=== PATIENT | female | born 1950 | race Caucasian/White ===

== ENCOUNTER 2018-05-19 07:05 | Day surgery (SDC) | payer MEDICARE, BC ==
[~2018-05-19 07:05] MED LIST: Acetaminophen 325 MG Tab PO SCH; Lactated Ringers 1,000 ML IV SCH; Lidocaine 1%/Sod Bicarbonate in NS 8.4% 1 ML Syringe IDERM PRN; Pregabalin 25 MG Cap PO SCH; Sodium Chloride 0.9% 10 ML Syringe FLUSH PRN; oxyCODONE ER 10 MG TAB.ER PO SCH
[2018-05-19] MEDS ORDERED: fentaNYL 100 MCG/2 ML SDV ONE (07:41)
[2018-05-19] MEDS ORDERED: Midazolam 1 MG/ML 2 ML SDV ONE (07:41)
[2018-05-19] MEDS ORDERED: Ketamine 500 mg/10 ML MDV ONE (07:41)
[2018-05-19] MEDS ORDERED: Propofol 200 MG/20 ML SDV ONE (07:41)
[2018-05-19] MEDS ORDERED: Ondansetron 4 MG/2 ML SDV ONE (07:42)
[2018-05-19] MEDS ORDERED: Lidocaine 1% 4 ML ONE (07:42)
[2018-05-19] MEDS ORDERED: ceFAZolin 1 GM Vial ONE ×2 (07:42→09:00)
[2018-05-19] MEDS ORDERED: Bupivacaine 0.75% 30 ML SDV ONE (07:42)
[2018-05-19] MEDS ORDERED: Dexamethasone 4 MG/ML 5 ML MDV ONE (07:42)
[2018-05-19] MEDS ORDERED: Ketorolac 30 MG/ML SDV ONE (07:42)
[2018-05-19] MEDS ORDERED: Triamcinolone Acetonide 40 MG/ML 1 ML MDV ONE (08:11)
--- NOTE | 2018-05-19 08:35 | PCM.PREANE ---
Preanesthetic Assessment - Procedure Proposed Procedure: Right Total Knee Arthroplasty - Anesthesia/Transfusion/Family Hx Anesthesia History: Prior Anesthesia Reaction Type of Anesthesia Reaction: Excessive Nausea/Vomiting Family History of Anesthesia Reaction: No - Review of Systems General: No Symptoms Pulmonary: No Symptoms, Other (History of questionable asthma. Patient states she uses her inhalers when she gets a cold. Denies SOB. ) Cardiovascular: No Symptoms, Other (Denies any episodes of chest pain. Able to walk up two flights of stairs. ) Gastrointestinal: No Symptoms Neurological: Headache Other: Reports: Depression (Bipolar Disorder), Anxiety - Physical Assessment NPO Status Date: 05/18/18 NPO Status Time: 21:00 (Water) Pulse: 87 O2 Sat by Pulse Oximetry: 93 Respiratory Rate: 18 Blood Pressure: 137/63 Temperature: 36.9 C Weight: 54.431 kg ASA Class: 2 Mental Status: Alert & Oriented x3 Airway Class: Mallampati = 2 Dentition: Reports: Normal Dentition Thyro-Mental Finger Breadths: 2 Mouth Opening Finger Breadths: 3 ROM/Head Extension: Full Lungs: Clear to Auscultation, Normal Respiratory Effort Cardiovascular: Regular Rate, Regular Rhythm, Murmurs - Lab Values: Laboratory Last Values MRSA (PCR) Negative 05/05/18 15:35 - Allergies Allergies/Adverse Reactions: Allergies Allergy/AdvReac Type Severity Reaction Status Date / Time codeine Allergy Rash Verified 05/16/18 12:20 guaifenesin [From Entex LA] Allergy Rash Verified 05/16/18 12:20 latex Allergy Cannot Verified 05/16/18 12:20 Remember phenylephrine HCl Allergy Rash Verified 05/16/18 12:20 [From Entex LA] phenylpropanolamine HCl Allergy Rash Verified 05/16/18 12:20 [From Entex LA] potassium Allergy Cannot Verified 05/16/18 12:20 Remember Sulfa (Sulfonamide Allergy Cannot Verified 05/16/18 12:20 Antibiotics) Remember montelukast sodium AdvReac Drowsiness Verified 05/16/18 12:20 [From Singulair] tetracycline [Tetracycline] AdvReac Nausea and Verified 05/16/18 12:20 Vomiting metals Allergy Cannot Uncoded 05/16/18 12:20 Remember - Acknowledgements Anesthesia Type Planned: Spinal Pt an Appropriate Candidate for the Planned Anesthesia: Yes Alternatives and Risks of Anesthesia Discussed w Pt/Guardian: Yes Pt/Guardian Understands and Agrees with Anesthesia Plan: Yes PreAnesthesia Questionnaire HEENT History: Reports: Allergic Rhinitis, Impaired Vision, Sinusitis, Other ( See Below) Other HEENT History: eustachian tybe dysfunction, bilateral serous otitis media , dental abcess Cardiovascular History: Reports: Heart Murmur, Hypertension, Other (See Below) Other Cardiovascular History: mitral valve prolapse, patent ductous arteriosis repair at 5 years old Respiratory History: Reports: Asthma, Bronchitis, Recurrent Gastrointestinal History: Reports: GERD NUT STEAMER History: Reports: Other (See Below) Other OB/BYN History: candidal vagintits, menopausal, breast microcalcifications , hot flashes, tubal Musculoskeletal History: Reports: Other (See Below) Other Musculoskeletal History: hammertoe, sicatica, left shoulder pain Neurological History: Reports: Migraines, Other (See Below) Other Neuro History: trigeminal neuralgia Psychiatric History: Reports: Bipolar Endocrine/Metabolic History: Reports: Other (See Below) Other Endocrine/Metabolic History: vitamin b12 deficiency Hematologic History: Reports: Anemia Immunologic History: Reports: None Oncologic (Cancer) History: Reports: Basal Cell Carcinoma Dermatologic History: Reports: Other (See Below) Other Dermatologic History: bCC - Past Surgical History Head Surgeries/Procedures: Reports: None HEENT Surgical History: Reports: Myringotomy w Tube(s), Naso-Sinus Surgery, Tonsillectomy Cardiovascular Surgical History: Reports: None Respiratory Surgical History: Reports: None Female Surgical History: Reports: Hysterectomy, Oophorectomy, Tubal Ligation Male Surgical History: Reports: None Neurological Surgical History: Reports: None Musculoskeletal Surgical History: Reports: Shoulder Surgery Oncologic Surgical History: Reports: None - SUBSTANCE USE Smoking Status *Q: Never Smoker Recreational Drug Use History: No - HOME MEDS Home Medications: Home Meds Estradiol 0.5 mg PO DAILY 08/02/14 [History] carBAMazepine [TEGretol] 500 mg PO BEDTIME 08/02/14 [History] risperiDONE [Risperdal] 3 mg PO BEDTIME 08/02/14 [History] Nitroglycerin 0.4 mg SL ONETIME PRN #1 tab.subl 08/03/14 [Rx] Albuterol Sulfate 1 dose INH Q6H PRN 11/03/14 [History] Albuterol [Proair HFA] 2 puff INH Q4H PRN 11/03/14 [History] Cetirizine [ZyrTEC] 10 mg PO BEDTIME 11/03/14 [History] Fluticasone Propionate [Flonase] 2 spray KENNEY BID 11/03/14 [History] Rizatriptan Benzoate [Rizatriptan] 10 mg PO Q2H PRN 11/03/14 [History] guaiFENesin [Mucinex] 600 mg PO BID PRN 11/03/14 [History] Aspirin [Adult Low Dose Aspirin EC] 81 mg PO DAILY 05/16/18 [History] Cholecalciferol (Vitamin D3) [Vitamin D3] 5,000 unit PO DAILY 05/16/18 [History] Olmesartan [Benicar] 20 mg PO DAILY 05/16/18 [History] - CURRENT (IN HOUSE) MEDS Current Meds: Current Medications Acetaminophen (Tylenol) 975 mg PO ONETIME REPLACED BY [facility] Stop: 05/19/18 18:00 Aspirin (Ecotrin) 325 mg PO BID IDANIA Bisacodyl (Dulcolax) 5 mg PO DAILY PRN PRN Reason: Constipation Morphine Sulfate 8 mg/Epinephrine HCl 0.3 mg/Cefuroxime Sodium 750 mg/Ketorolac Tromethamine 30 mg/Sodium Chloride 27.9 ml 0 mg .XX ONETIME ONE Stop: 05/19/18 10:01 Cyclobenzaprine HCl (Flexeril) 10 mg PO TID PRN PRN Reason: Spasms Docusate Sodium (Colace) 100 mg PO BID IDANIA Famotidine (Pepcid) 20 mg PO Q12H REPLACED BY [facility] Lactated Ringer's (Ringers, Lactated) 1,000 mls @ 125 mls/hr IV ASDIRECTED REPLACED BY [facility] Stop: 05/19/18 23:00 Cefazolin Sodium/Dextrose 2 gm (/ Premix) 50 mls @ 100 mls/hr IV Q8H REPLACED BY [facility] Stop: 05/19/18 23:14 Ketorolac Tromethamine (Toradol) 15 mg IVPUSH Q6H PRN PRN Reason: Pain Lidocaine/Sodium Bicarbonate (Buffered Lidocaine 1% In Ns 8.4%) 0.25 ml IDERM ONETIME PRN PRN Reason: Prior to IV Start Stop: 05/19/18 18:00 Magnesium Hydroxide (Milk Of Magnesia) 30 ml PO BID PRN PRN Reason: Constipation Morphine Sulfate (Morphine) 2 mg IVPUSH Q2H PRN PRN Reason: Breakthrough Pain Naloxone HCl (Narcan) 0.1 mg IVPUSH Q5M PRN PRN Reason: Oversedation Ondansetron HCl (Zofran) 4 mg IVPUSH Q6H PRN PRN Reason: Nausea/Vomiting Oxycodone HCl (Oxycontin) 10 mg PO ONETIME IDANIA Stop: 05/19/18 18:00 Oxycodone/Acetaminophen (Percocet 325-5 Mg) 1 - 2 tab PO Q4H PRN PRN Reason: Pain Pregabalin (Lyrica) 50 mg PO ONETIME IDANIA Stop: 05/19/18 18:00 Senna (Senna) 8.6 mg PO BID PRN PRN Reason: Constipation Sodium Chloride (Saline Flush) 10 ml FLUSH ASDIRECTED PRN PRN Reason: Keep Vein Open Stop: 05/19/18 18:00 Discontinued Medications Bupivacaine HCl (Sensorcaine-Mpf 0.75%) Confirm Administered Dose 30 ml .ROUTE .STK-MED ONE Stop: 05/19/18 07:43 Bupivacaine HCl (Marcaine 0.25%) Confirm Administered Dose 30 ml .ROUTE .STK- MED ONE Stop: 05/19/18 08:12 Bupivacaine HCl (Sensorcaine-Mpf 0.25%) Confirm Administered Dose 10 ml .ROUTE .STK-MED ONE Stop: 05/19/18 08:14 Cefazolin Sodium (Ancef) Confirm Administered Dose 1 gm .ROUTE .STK-MED ONE Stop: 05/19/18 07:43 Cefazolin Sodium (Ancef) Confirm Administered Dose 2 gm .ROUTE .STK-MED ONE Stop: 05/19/18 08:12 Dexamethasone (Dexamethasone) Confirm Administered Dose 20 mg .ROUTE .STK-MED ONE Stop: 05/19/18 07:43 Fentanyl (Sublimaze) Confirm Administered Dose 100 mcg .ROUTE .STK-MED ONE Stop: 05/19/18 07:42 Lidocaine HCl (Xylocaine-Mpf 1%) Confirm Administered Dose 4 mls @ as directed .ROUTE .STK-MED ONE Stop: 05/19/18 07:43 Iodine (Iodine 2% Mild Tincture) Confirm Administered Dose 30 ml .ROUTE .STK- MED ONE Stop: 05/19/18 08:12 Ketamine HCl (Ketalar) Confirm Administered Dose 500 mg .ROUTE .STK-MED ONE Stop: 05/19/18 07:42 Ketorolac Tromethamine (Toradol) Confirm Administered Dose 30 mg .ROUTE .STK- MED ONE Stop: 05/19/18 07:43 Midazolam HCl (Versed 1 Mg/Ml) Confirm Administered Dose 2 mg .ROUTE .STK-MED ONE Stop: 05/19/18 07:42 Ondansetron HCl (Zofran) Confirm Administered Dose 4 mg .ROUTE .STK-MED ONE Stop: 05/19/18 07:43 Propofol (Diprivan 20 Ml) Confirm Administered Dose 600 mg .ROUTE .STK-MED ONE Stop: 05/19/18 07:42 Tranexamic Acid (Cyklokapron) Confirm Administered Dose 1,000 mg .ROUTE .STK- MED ONE Stop: 05/19/18 08:12 Triamcinolone Acetonide (Kenalog-40) Confirm Administered Dose 80 mg .ROUTE .STK -MED ONE Stop: 05/19/18 08:12 Vancomycin HCl (Vancomycin) Confirm Administered Dose 1 gm .ROUTE .STK-MED ONE Stop: 05/19/18 08:12
[2018-05-19] MEDS ORDERED: EPINEPHrine 1 MG/ML SDV ONE (08:41)
[2018-05-19] MEDS ORDERED: Ropivacaine 0.5% 5 MG/ML 30 ML SDV ONE (08:41)
[2018-05-19] MEDS: Bupivacaine 0.25% 30 ML SDV ONE ×2 (11:09→11:17)
[2018-05-19] MEDS: Bupivacaine 0.25% 10 ML SDV ONE ×2 (11:10→11:43)
[2018-05-19] MEDS: ceFAZolin 1 GM Vial ONE ×2 (11:11→11:13)
[2018-05-19] MEDS: Iodine/Sodium Iodide 2% Tincture 30 ML Bottle ONE ×2 (11:11→11:12)
[2018-05-19] MEDS: Morphine 8 MG, EPINEPHrine 0.3 MG, Cefuroxime 750 MG, Ketorolac 30 MG, Sodium Chloride ... ONE ×10 (11:15→11:16)
[2018-05-19] MEDS: Vancomycin 1 GM SDV ONE ×2 (11:16→11:18)
[2018-05-19] MEDS ORDERED: Albuterol 6.7 GM Inhaler INH PRN (11:52)
[2018-05-19] MEDS ORDERED: Albuterol 0.042% 1.25 MG/3 ML Neb Soln INH PRN (11:52)
[2018-05-19] MEDS ORDERED: Nitroglycerin 0.4 MG Tab.SL SL PRN (11:52)
[2018-05-19] MEDS ORDERED: Morphine 2 MG/ML Syringe IVPUSH PRN (12:00)
[2018-05-19] MEDS ORDERED: Cyclobenzaprine 10 MG Tab PO PRN (12:00)
[2018-05-19] MEDS ORDERED: Bisacodyl 5 MG Tab PO PRN (12:00)
[2018-05-19] MEDS ORDERED: Naloxone 0.4 MG/ML SDV IVPUSH PRN (12:00)
[2018-05-19] MEDS ORDERED: Magnesium Hydroxide 400 MG/5 ML Susp 30 ML Cup PO PRN (12:00)
[2018-05-19] MEDS ORDERED: Ketorolac 15 MG/ML SDV IVPUSH PRN (12:00)
[2018-05-19] MEDS ORDERED: Ondansetron 4 MG/2 ML SDV IVPUSH PRN (12:00)
[2018-05-19] MEDS ORDERED: Sennosides 8.6 MG Tab PO PRN (12:00)
--- NOTE | 2018-05-19 12:12 | PCM.POSTAN ---
POST ANESTHESIA ASSESSMENT - MENTAL STATUS Mental Status: Alert, Oriented - VITAL SIGNS Pulse Rate: 90 SaO2: 98 Resp Rate: 10 Blood Pressure: 105/53 Temperature: 36.6 C - RESPIRATORY Respiratory Status: Respiratory Rate WNL, Airway Patent, O2 Saturation Stable, Supplemental Oxygen - CARDIOVASCULAR CV Status: Pulse Rate WNL, Blood Pressure Stable - GASTROINTESTINAL GI Status: No Symptoms - PAIN Pain Score: 0 - POST OP HYDRATION Hydration Status: Adequate & Stable
[2018-05-19] MEDS ORDERED: Scopolamine 1.5 MG Transdermal Patch TOP ONE (12:45)
--- NOTE | 2018-05-19 12:49 | PCM.SN ---
- Free Text/Narrative Note: Right selective femoral nerve block at the adductor canal for post-procedure pain control Time Out: 1225 Start: 1228 End: 1233 Chart reviewed. Consent signed. Questions answered. Appropriate monitors applied. Time out performed. 2mg of versed and 100mcg of fentanyl given for sedation. Right mid-shaft femur evaluated with ultrasound. Scanning medially femur, I was able to identify the femoral artery in the adductor canal. The saphenous nerve was lateral to the artery. The skin was prepped lateral to the ultrasound probe with chlorahexadine. The 21ga 4 insulated block needle was inserted under direct ultrasound guidance into the adductor canal. 20mL of 0.5 % ropivacaine with 1:200,000 epinephrine was injected cirmcumferentially about the nerve with intermittent negative aspiration every 5mL. Patient tolerated the procedure well. No complications noted. See pictures on progress note and vital signs on nurses notes. Block completed postoperatively. Em Horner DIRECTOR OF RELIGIOUS ACTIVITIES
--- NOTE | 2018-05-19 14:19 | CR ---
Right knee: AP and lateral views of the right knee were obtained. Comparison: Previous MRI right knee exam of 03/31/18 is available. Knee prosthesis is seen. Components are aligned. Underlying bony structures are intact. Soft tissue air is noted from surgical procedure as well as air within the joint. No fracture or other abnormality is seen. Impression: 1. Satisfactory postoperative radiographic appearance of recently placed right knee prosthesis. Diagnostic code #2
[2018-05-19] MEDS: ceFAZolin 2 GM in Premix Bag 1 BAG IV SCH (18:06)
--- NOTE | 2018-05-19 19:20 | PCM.CONS ---
H&P History of Present Illness - General Date of Service: 05/19/18 Admit Problem/Dx: Admission Diagnosis/Problem Admission Diagnosis/Problem Osteoarthritis of knee Source of Information: Patient, Provider History Limitations: Reports: No Limitations - History of Present Illness Initial Comments - Free Text/Narative: Riana is a 68 yo female patient of Dr. Johnson who is post-operative day 0 of right TKA. Hospital medicine was consulted for post-operative medical care. At this time she is stable. Pain is controlled. She complains of nausea and a slight headache. She denies any chest pain, shortness of breath, palpitations, or vomiting. She carries a history of: Depression, abnormal glucose (IFG), asthma, bipolar, louis vaginitis, low bilirubin, allergies, murmur- bicuspid aortic valve, HTN, osteopenia, post-menopause, GERD, fatigue, migraines, mitral valve prolapse, sciatica. She has never smoked. She is a full code. Her primary care provider is Mickie Frye NP. - Related Data Allergies/Adverse Reactions: Allergies Allergy/AdvReac Type Severity Reaction Status Date / Time codeine Allergy Rash Verified 05/19/18 13:48 guaifenesin [From Entex LA] Allergy Rash Verified 05/19/18 13:48 latex Allergy Cannot Verified 05/19/18 13:48 Remember levofloxacin [From Levaquin] Allergy Cannot Verified 05/19/18 13:48 Remember lisinopril Allergy Cannot Verified 05/19/18 13:48 Remember losartan Allergy Cannot Verified 05/19/18 13:48 Remember phenylephrine HCl Allergy Rash Verified 05/19/18 13:48 [From Entex LA] phenylpropanolamine HCl Allergy Rash Verified 05/19/18 13:48 [From Entex LA] potassium Allergy Cannot Verified 05/19/18 13:48 Remember Sulfa (Sulfonamide Allergy Cannot Verified 05/19/18 13:48 Antibiotics) Remember montelukast sodium AdvReac Drowsiness Verified 05/19/18 13:48 [From Singulair] tetracycline [Tetracycline] AdvReac Nausea and Verified 05/19/18 13:48 Vomiting metals Allergy Cannot Uncoded 05/19/18 13:48 Remember Home Medications: Home Meds Estradiol 0.5 mg PO DAILY 08/02/14 [History] carBAMazepine [TEGretol] 500 mg PO BEDTIME 08/02/14 [History] risperiDONE [Risperdal] 3 mg PO BEDTIME 08/02/14 [History] Nitroglycerin 0.4 mg SL ONETIME PRN #1 tab.subl 08/03/14 [Rx] Albuterol Sulfate 1 dose INH Q6H PRN 11/03/14 [History] Albuterol [Proair HFA] 2 puff INH Q4H PRN 11/03/14 [History] Cetirizine [ZyrTEC] 10 mg PO BEDTIME 11/03/14 [History] Fluticasone Propionate [Flonase] 2 spray KENNEY BID 11/03/14 [History] Rizatriptan Benzoate [Rizatriptan] 10 mg PO Q2H PRN 11/03/14 [History] guaiFENesin [Mucinex] 600 mg PO BID PRN 11/03/14 [History] Cholecalciferol (Vitamin D3) [Vitamin D3] 5,000 unit PO DAILY 05/16/18 [History] Olmesartan [Benicar] 20 mg PO DAILY 05/16/18 [History] Acetaminophen/oxyCODONE [Percocet 325-5 MG] 1 - 2 tab PO Q6H PRN #60 tablet 01/05 [Rx] Aspirin [Ecotrin] 325 mg PO BID #84 tab.ec 05/19/18 [Rx] Bisacodyl [Dulcolax] 5 mg PO DAILY PRN tablet 05/19/18 [Rx] Docusate Sodium [Colace] 100 mg PO BID cap 05/19/18 [Rx] Famotidine [Pepcid] 20 mg PO Q12H tablet 05/19/18 [Rx] Magnesium Hydroxide [Milk of Magnesia] 30 ml PO BID PRN cup 05/19/18 [Rx] Sennosides [Senna] 8.6 mg PO BID PRN tablet 05/19/18 [Rx] Past Medical History HEENT History: Reports: Allergic Rhinitis, Impaired Vision, Sinusitis, Other ( See Below) Other HEENT History: eustachian tybe dysfunction, bilateral serous otitis media , dental abcess Cardiovascular History: Reports: Heart Murmur, Hypertension, Other (See Below) Other Cardiovascular History: mitral valve prolapse, patent ductous arteriosis repair at 5 years old Respiratory History: Reports: Asthma, Bronchitis, Recurrent Gastrointestinal History: Reports: GERD FIELD AIDE History: Reports: Other (See Below) Other OB/BYN History: candidal vagintits, menopausal, breast microcalcifications , hot flashes, tubal Musculoskeletal History: Reports: Other (See Below) Other Musculoskeletal History: hammertoe, sicatica, left shoulder pain Neurological History: Reports: Migraines, Other (See Below) Other Neuro History: trigeminal neuralgia Psychiatric History: Reports: Bipolar Endocrine/Metabolic History: Reports: Other (See Below) Other Endocrine/Metabolic History: vitamin b12 deficiency Hematologic History: Reports: Anemia Immunologic History: Reports: None Oncologic (Cancer) History: Reports: Basal Cell Carcinoma Dermatologic History: Reports: Other (See Below) Other Dermatologic History: bCC - Past Surgical History Head Surgeries/Procedures: Reports: None HEENT Surgical History: Reports: Myringotomy w Tube(s), Naso-Sinus Surgery, Tonsillectomy Cardiovascular Surgical History: Reports: None Respiratory Surgical History: Reports: None Female Surgical History: Reports: Hysterectomy, Oophorectomy, Tubal Ligation Male Surgical History: Reports: None Neurological Surgical History: Reports: None Musculoskeletal Surgical History: Reports: Shoulder Surgery Oncologic Surgical History: Reports: None Social & Family History - Tobacco Use Smoking Status *Q: Never Smoker - Caffeine Use Caffeine Use: Reports: Tea - Recreational Drug Use Recreational Drug Use: No Drug Use in Last 12 Months: No H&P Review of Systems - Review of Systems: Review Of Systems: See Below General: Reports: No Symptoms. Denies: Fever, Chills HEENT: Reports: Glasses, Headaches (mild) Pulmonary: Reports: No Symptoms. Denies: Shortness of Breath, Pleuritic Chest Pain, Cough Cardiovascular: Reports: No Symptoms. Denies: Chest Pain, Dyspnea on Exertion, Orthopnea, Lightheadedness Gastrointestinal: Reports: Nausea (mild). Denies: Abdominal Pain, Constipation , Diarrhea, Vomiting Genitourinary: Reports: No Symptoms. Denies: Dysuria, Frequency, Burning, Pain , Urgency Musculoskeletal: Reports: No Symptoms. Denies: Leg Pain, Joint Pain Skin: Reports: No Symptoms Psychiatric: Reports: No Symptoms Neurological: Reports: No Symptoms Hematologic/Lymphatic: Reports: No Symptoms Immunologic: Reports: No Symptoms Exam - Exam Exam: See Below - Vital Signs Vital Signs: Last Vital Signs Temp 97.5 F 05/19/18 13:09 Pulse 84 05/19/18 15:02 Resp 18 05/19/18 13:09 BP 113/55 L 05/19/18 15:02 Pulse Ox 95 05/19/18 15:02 Weight: 120 lb - Exam Quality Assessment: DVT Prophylaxis. No: Supplemental Oxygen, Urinary Catheter General: Alert, Oriented, Cooperative, Mild Distress HEENT: PERRLA, Hearing Intact, Mucosa Moist & [place], Nares Patent, Normal Nasal Septum, Posterior Pharynx Clear, Conjunctiva Clear, EOMI, EACs Clear, TMs Clear Neck: Supple, Trachea Midline, 2 Lungs: Clear to Auscultation, Normal Respiratory Effort Cardiovascular: Regular Rate, Regular Rhythm, Other (murmur) GI/Abdominal Exam: Normal Bowel Sounds, Soft, Non-Tender, No Organomegaly, No Distention, No Abnormal Bruit, No Mass, Pelvis Stable (Female) Exam: Deferred Rectal (Female) Exam: Deferred Back Exam: Normal Inspection, Full Range of Motion, NT Extremities: Normal Inspection, Non-Tender, No Pedal Edema, Normal Capillary Refill, Limited Range of Motion (s/p R TKA) Peripheral Pulses: 2+: Posterior Tibial (L), Posterior Tibial (R), Dorsalis Pedis (L), Dorsalis Pedis (R) Skin: Warm, Dry, Intact Neurological: Cranial Nerves Intact (grossly) Neuro Extensive - Mental Status: Alert, Oriented x3, Normal Mood/Affect, Normal Cognition Psychiatric: Alert, Normal Affect, Normal Mood Consult PN Assessment/Plan POD#: 0 Procedures: Procedures ASSAY CARBAMAZEPINE TOTAL (01/31/18) ASSAY GLUCOSE BLOOD QUANT (03/05/18) ASSAY OF NATRIURETIC PEPTIDE (08/03/14) ASSAY OF PREALBUMIN (04/24/18) ASSAY OF TROPONIN QUANT (08/03/14) ASSAY THYROID STIM HORMONE (02/08/16) C-REACTIVE PROTEIN (08/03/14) CHEST X-RAY 1 VIEW FRONTAL (08/03/14) CHEST X-RAY 2VW FRONTAL&LATL (10/12/14) COMP SCREEN MAMMOGRAM ADD-ON (04/27/16) COMPLETE CBC W/AUTO DIFF WBC (01/31/18) COMPREHEN METABOLIC PANEL (04/24/18) COMPUTER DX MAMMOGRAM ADD-ON (05/24/16) CREATINE MB FRACTION (08/03/14) DXA BONE DENSITY AXIAL (05/06/17) ELECTROCARDIOGRAM TRACING (08/03/14) EMERGENCY DEPT VISIT (08/03/14) EMERGENCY DEPT VISIT (08/02/14) FIBRIN DEGRADATION QUANT (08/03/14) FLUOROSCOPY <1 HR PHYS/QHP (12/09/14) GLYCOSYLATED HEMOGLOBIN TEST (03/05/18) HT MUSCLE IMAGE SPECT MULT (08/06/14) INCISION OF TOE TENDON (12/09/14) LIPID PANEL (01/31/18) METABOLIC PANEL TOTAL CA (10/12/14) MR-STAPH DNA AMP PROBE (10/26/14) MRI JNT OF LWR EXTRE W/O DYE (03/31/18) MRI JOINT UPR EXTREM W/O DYE (02/07/16) PERQ DEV BREAST 1ST STRTCTC (05/24/16) PROTHROMBIN TIME (04/24/18) REPAIR DEFORMITY OF TOE (12/09/14) REPAIR OF HAMMERTOE (12/09/14) ROUTINE VENIPUNCTURE (02/08/16) SCR MAMMO BI INCL CAD (05/13/18) THROMBOPLASTIN TIME PARTIAL (04/24/18) TTE W/DOPPLER COMPLETE (07/01/15) X-RAY EXAM CHEST 2 VIEWS (04/24/18) X-RAY EXAM OF SHOULDER (02/01/16) X-RAY EXAM SURGICAL SPECIMEN (05/24/16) (1) S/P total knee arthroplasty SNOMED Code(s): 0006651251158, 211997840, 2153487065950 Code(s): Z96.659 - PRESENCE OF UNSPECIFIED ARTIFICIAL KNEE JOINT Priority: High Current Visit: Yes Qualifiers: Laterality: right Qualified Code(s): Z96.651 - Presence of right artificial knee joint (2) Bipolar disorder SNOMED Code(s): 22333306 Code(s): F31.9 - BIPOLAR DISORDER, UNSPECIFIED Priority: Low Current Visit: No Qualifiers: Active/Remission status: remission status unspecified Qualified Code(s): F31.9 - Bipolar disorder, unspecified (3) Mitral valve prolapse SNOMED Code(s): 447993517 Code(s): I34.1 - NONRHEUMATIC MITRAL (VALVE) PROLAPSE Priority: Low Current Visit: Yes (4) Sciatica SNOMED Code(s): 68713702 Code(s): M54.30 - SCIATICA, UNSPECIFIED SIDE Priority: Low Current Visit : No Qualifiers: Laterality: unspecified laterality Qualified Code(s): M54.30 - Sciatica, unspecified side (5) Bicuspid aortic valve SNOMED Code(s): 03979083 Code(s): Q23.1 - CONGENITAL INSUFFICIENCY OF AORTIC VALVE Priority: Low Current Visit: Yes (6) Asthma SNOMED Code(s): 903821638 Code(s): J45.909 - UNSPECIFIED ASTHMA, UNCOMPLICATED Priority: Low Current Visit: No Qualifiers: Asthma severity: unspecified severity Asthma persistence: unspecified Asthma complication type: unspecified Qualified Code(s): J45.909 - Unspecified asthma, uncomplicated (7) HTN (hypertension) SNOMED Code(s): 07592198 Code(s): I10 - ESSENTIAL (PRIMARY) HYPERTENSION Priority: Low Current Visit: No Qualifiers: Hypertension type: unspecified Qualified Code(s): I10 - Essential (primary ) hypertension (8) Osteopenia SNOMED Code(s): 525388357 Code(s): M85.80 - OTH DISRD OF BONE DENSITY AND STRUCTURE, UNSPECIFIED SITE Priority: Low Current Visit: No Qualifiers: Osteopenia location: unspecified Qualified Code(s): M85.80 - Other specified disorders of bone density and structure, unspecified site (9) Postmenopausal Priority: Low Current Visit: Yes (10) GERD (gastroesophageal reflux disease) SNOMED Code(s): 143123645 Code(s): K21.9 - GASTRO-ESOPHAGEAL REFLUX DISEASE WITHOUT ESOPHAGITIS Priority: Medium Current Visit: Yes Qualifiers: Esophagitis presence: esophagitis presence not specified Qualified Code(s) : K21.9 - Gastro-esophageal reflux disease without esophagitis (11) Migraines SNOMED Code(s): 55739467 Code(s): G43.909 - MIGRAINE, UNSP, NOT INTRACTABLE, WITHOUT STATUS MIGRAINOSUS Priority: Low Current Visit: No Qualifiers: Migraine type: unspecified Status migrainosus presence: without status migrainosus Intractability: not intractable Qualified Code(s): G43.909 - Migraine, unspecified, not intractable, without status migrainosus Problem List Initiated/Reviewed/Updated: Yes Plan: I/P: Acute: S/P right total knee arthroplasty - post-operative day 0 -DVT prophylaxis and pain management per primary care team -PT/OT -IS/RT -Monitor oxygen saturation -Titrate oxygen as needed -Vital signs stable -Monitor labs -Pre-operative Hgb was 12.3 Osteoarthritis of knee -Pain management per primary care team Chronic: Depression Abnormal glucose (IFG) Asthma Bipolar Louis vaginitis Low bilirubin Allergies Murmur- bicuspid aortic valve HTN Osteopenia Post-menopause GERD Fatigue Migraines Mitral valve prolapse Sciatica Plan: CM for discharge planning GI prophylaxis: Pepcid DVT/PE prophylaxis: JESSICA holland, SCD, ASA Home medications as indicated Other orders as listed above Routine AM labs She is a full code. Her PCP is Mickie Frye NP. Thank you for allowing us to participate in the care of this patient!!
[2018-05-19] MEDS: Docusate Sodium 100 MG Cap PO SCH (20:10)
[2018-05-19] MEDS: Famotidine 20 MG Tab PO SCH (20:10)
[2018-05-19] MEDS: Acetaminophen/oxyCODONE 325-5 MG Tab PO PRN (20:23)
[2018-05-19] MEDS ORDERED: Estradiol 0.5 MG Tab PO SCH (21:00)
[2018-05-19] MEDS ORDERED: carBAMazepine 100 MG Tab.Chew PO SCH (21:00)
[2018-05-19] MEDS ORDERED: guaiFENesin 600 MG Tab.ER PO PRN (21:00)
[2018-05-19] MEDS ORDERED: risperiDONE 1 MG Tab PO SCH (21:00)
[2018-05-19] MEDS ORDERED: Loratadine 10 MG Tab PO SCH (21:00)
[2018-05-20] MEDS: Acetaminophen/oxyCODONE 325-5 MG Tab PO PRN ×2 (01:12→08:13)
[2018-05-20] MEDS: ceFAZolin 2 GM in Premix Bag 1 BAG IV SCH ×2 (01:13→09:00)
--- NOTE | 2018-05-20 06:41 | PCM.CONSN ---
- General Info Date of Service: 05/20/18 Admission Dx/Problem (Free Text): Admission Diagnosis/Problem Admission Diagnosis/Problem Osteoarthritis of knee Subjective Update: In to see Riana. She is sitting on the edge of bed and has no complaints or concerns. OT has visited with her and she is doing well with them. No concerns form nursing. Functional Status: Reports: Pain Controlled, Tolerating Diet, Ambulating, Urinating, Incentive Spirometry. Denies: New Symptoms - Review of Systems General: Reports: No Symptoms HEENT: Reports: No Symptoms Pulmonary: Reports: No Symptoms Cardiovascular: Reports: No Symptoms Gastrointestinal: Reports: No Symptoms Genitourinary: Reports: No Symptoms Musculoskeletal: Reports: Leg Pain Skin: Reports: No Symptoms Neurological: Reports: No Symptoms Psychiatric: Reports: No Symptoms - Patient Data Vitals - Most Recent: Last Vital Signs Temp 98.1 F 05/20/18 04:54 Pulse 92 05/20/18 04:54 Resp 16 05/20/18 04:54 BP 104/51 L 05/20/18 04:54 Pulse Ox 94 L 05/20/18 05:14 Weight - Most Recent: 120 lb I&O - Last 24 Hours: Intake & Output 05/19/18 05/19/18 05/20/18 14:59 22:59 06:59 Intake Total 100 860 450 Output Total 2050 Balance 100 860 -1600 Lab Results Last 24 Hours: Laboratory Results - last 24 hr 05/20/18 Range/Units 05:23 WBC 10.77 H (3.98-10.04) K/mm3 RBC 3.61 L (3.98-5.22) M/mm3 Hgb 11.8 (11.2-15.7) gm/L Hct 34.8 (34.1-44.9) % MCV 96.4 H (79.4-94.8) fl MCH 32.7 H (25.6-32.2) pg MCHC 33.9 (32.2-35.5) g/dl RDW Std Deviation 42.5 (36.4-46.3) fL Plt Count 291 (182-369) K/mm3 MPV 8.7 L (9.4-12.3) fl Med Orders - Current: Current Medications Albuterol (Proventil Hfa) 0 gm INH Q4H PRN PRN Reason: Shortness of Breath Albuterol (Proventil Neb Soln) 1.25 mg INH Q6H PRN PRN Reason: Shortness of Breath Aspirin (Ecotrin) 325 mg PO BID [facility] Bisacodyl (Dulcolax) 5 mg PO DAILY PRN PRN Reason: Constipation Carbamazepine (Tegretol) 500 mg PO BEDTIME [facility] Last Admin: 05/19/18 20:11 Dose: 500 mg Cholecalciferol (Vitamin D3) 5,000 unit PO DAILY [facility] Cyclobenzaprine HCl (Flexeril) 10 mg PO TID PRN PRN Reason: Spasms Docusate Sodium (Colace) 100 mg PO BID [facility] Last Admin: 05/19/18 20:10 Dose: 100 mg Estradiol (Estradiol) 0.5 mg PO BEDTIME [facility] Last Admin: 05/19/18 20:10 Dose: 0.5 mg Famotidine (Pepcid) 20 mg PO Q12H [facility] Last Admin: 05/19/18 20:10 Dose: 20 mg Flunisolide (Nasalide Nasal [place]) 0 ml KENNEY BID [facility] Last Admin: 05/19/18 20:11 Dose: 2 spray Guaifenesin (Mucinex) 600 mg PO BID PRN PRN Reason: cough/cold Cefazolin Sodium/Dextrose 2 gm (/ Premix) 50 mls @ 100 mls/hr IV Q8H [facility] Stop: 05/20/18 10:29 Last Admin: 05/20/18 01:13 Dose: 100 mls/hr Ketorolac Tromethamine (Toradol) 15 mg IVPUSH Q6H PRN PRN Reason: Pain Loratadine (Claritin) 10 mg PO BEDTIME [facility] Last Admin: 05/19/18 20:10 Dose: 10 mg Losartan Potassium (Cozaar) 50 mg PO DAILY [facility] Magnesium Hydroxide (Milk Of Magnesia) 30 ml PO BID PRN PRN Reason: Constipation Morphine Sulfate (Morphine) 2 mg IVPUSH Q2H PRN PRN Reason: Breakthrough Pain Naloxone HCl (Narcan) 0.1 mg IVPUSH Q5M PRN PRN Reason: Oversedation Nitroglycerin (Nitrostat) 0.4 mg SL ONETIME PRN PRN Reason: Chest Pain Ondansetron HCl (Zofran) 4 mg IVPUSH Q6H PRN PRN Reason: Nausea/Vomiting Last Admin: 05/19/18 13:22 Dose: 4 mg Oxycodone/Acetaminophen (Percocet 325-5 Mg) 1 - 2 tab PO Q4H PRN PRN Reason: Pain Last Admin: 05/20/18 01:12 Dose: 2 tab Rizatriptan 10 Mg 0 each PO Q2H PRN PRN Reason: Headache Risperidone (Risperidal) 3 mg PO BEDTIME [facility] Last Admin: 05/19/18 20:11 Dose: 3 mg Senna (Senna) 8.6 mg PO BID PRN PRN Reason: Constipation Discontinued Medications Acetaminophen (Tylenol) 975 mg PO ONETIME [facility] Stop: 05/19/18 18:00 Last Admin: 05/19/18 09:10 Dose: 975 mg Bupivacaine HCl (Sensorcaine-Mpf 0.75%) Confirm Administered Dose 30 ml .ROUTE .STK-MED ONE Stop: 05/19/18 07:43 Bupivacaine HCl (Marcaine 0.25%) Confirm Administered Dose 30 ml .ROUTE .STK- MED ONE Stop: 05/19/18 08:12 Last Admin: 05/19/18 11:17 Dose: 30 ml Bupivacaine HCl (Sensorcaine-Mpf 0.25%) Confirm Administered Dose 10 ml .ROUTE .STK-MED ONE Stop: 05/19/18 08:14 Last Admin: 05/19/18 11:43 Dose: 4 ml Cefazolin Sodium (Ancef) Confirm Administered Dose 1 gm .ROUTE .STK-MED ONE Stop: 05/19/18 07:43 Cefazolin Sodium (Ancef) Confirm Administered Dose 2 gm .ROUTE .STK-MED ONE Stop: 05/19/18 08:12 Last Admin: 05/19/18 11:13 Dose: 2 gm Cefazolin Sodium (Ancef) Confirm Administered Dose 1 gm .ROUTE .STK-MED ONE Stop: 05/19/18 09:01 Morphine Sulfate 8 mg/Epinephrine HCl 0.3 mg/Cefuroxime Sodium 750 mg/Ketorolac Tromethamine 30 mg/Sodium Chloride 27.9 ml 0 mg .XX ONETIME ONE Stop: 05/19/18 10:01 Last Admin: 05/19/18 11:16 Dose: 788.3 mg Dexamethasone (Dexamethasone) Confirm Administered Dose 20 mg .ROUTE .STK-MED ONE Stop: 05/19/18 07:43 Epinephrine HCl (Adrenalin) Confirm Administered Dose 1 mg .ROUTE .STK-MED ONE Stop: 05/19/18 08:42 Fentanyl (Sublimaze) Confirm Administered Dose 100 mcg .ROUTE .STK-MED ONE Stop: 05/19/18 07:42 Lactated Ringer's (Ringers, Lactated) 1,000 mls @ 125 mls/hr IV ASDIRECTED [facility] Stop: 05/19/18 23:00 Last Admin: 05/19/18 08:30 Dose: 125 mls/hr Lidocaine HCl (Xylocaine-Mpf 1%) Confirm Administered Dose 4 mls @ as directed .ROUTE .STK-MED ONE Stop: 05/19/18 07:43 Iodine (Iodine 2% Mild Tincture) Confirm Administered Dose 30 ml .ROUTE .STK- MED ONE Stop: 05/19/18 08:12 Last Admin: 05/19/18 11:11 Dose: 18 ml Ketamine HCl (Ketalar) Confirm Administered Dose 500 mg .ROUTE .STK-MED ONE Stop: 05/19/18 07:42 Ketorolac Tromethamine (Toradol) Confirm Administered Dose 30 mg .ROUTE .STK- MED ONE Stop: 05/19/18 07:43 Lidocaine/Sodium Bicarbonate (Buffered Lidocaine 1% In Ns 8.4%) 0.25 ml IDERM ONETIME PRN PRN Reason: Prior to IV Start Stop: 05/19/18 18:00 Last Admin: 05/19/18 08:29 Dose: 0.25 ml Midazolam HCl (Versed 1 Mg/Ml) Confirm Administered Dose 2 mg .ROUTE .STK-MED ONE Stop: 05/19/18 07:42 Ondansetron HCl (Zofran) Confirm Administered Dose 4 mg .ROUTE .STK-MED ONE Stop: 05/19/18 07:43 Oxycodone HCl (Oxycontin) 10 mg PO ONETIME [facility] Stop: 05/19/18 18:00 Last Admin: 05/19/18 09:10 Dose: 10 mg Pregabalin (Lyrica) 50 mg PO ONETIME [facility] Stop: 05/19/18 18:00 Last Admin: 05/19/18 09:10 Dose: 50 mg Propofol (Diprivan 20 Ml) Confirm Administered Dose 600 mg .ROUTE .STK-MED ONE Stop: 05/19/18 07:42 Ropivacaine (Naropin 0.5%) Confirm Administered Dose 30 ml .ROUTE .STK-MED ONE Stop: 05/19/18 08:42 Scopolamine (Transderm-Scop) 1.5 mg TOP ONETIME ONE Stop: 05/19/18 12:46 Last Admin: 05/19/18 13:42 Dose: 1.5 mg Sodium Chloride (Saline Flush) 10 ml FLUSH ASDIRECTED PRN PRN Reason: Keep Vein Open Stop: 05/19/18 18:00 Tranexamic Acid (Cyklokapron) Confirm Administered Dose 1,000 mg .ROUTE .STK- MED ONE Stop: 05/19/18 08:12 Last Admin: 05/19/18 11:22 Dose: 1,000 mg Triamcinolone Acetonide (Kenalog-40) Confirm Administered Dose 80 mg .ROUTE .STK -MED ONE Stop: 05/19/18 08:12 Last Admin: 05/19/18 11:43 Dose: 80 mg Vancomycin HCl (Vancomycin) Confirm Administered Dose 1 gm .ROUTE .STK-MED ONE Stop: 05/19/18 08:12 Last Admin: 05/19/18 11:18 Dose: 1 gm - Exam Quality Assessment: DVT Prophylaxis General: Alert, Oriented, Cooperative, No Acute Distress HEENT: Pupils Equal, Pupils Reactive, EOMI, Mucous Membr. Moist/[place] Neck: Supple, Trachea Midline, No JVD Lungs: Clear to Auscultation, Normal Respiratory Effort Cardiovascular: Regular Rate, Regular Rhythm GI/Abdominal Exam: Normal Bowel Sounds, Soft, Non-Tender, No Distention, Pelvis Stable (Female) Exam: Deferred Back Exam: Normal Inspection, Full Range of Motion Extremities: No Pedal Edema, Normal Capillary Refill, Leg Pain, Limited Range of Motion, Other (ALINA bandage on right leg. Cooling pack in place. ) Peripheral Pulses: 3+: Radial (L), Radial (R), Posterior Tibial (L), Posterior Tibial (R), Dorsalis Pedis (L), Dorsalis Pedis (R) Skin: Warm, Dry, Intact Wound/Incisions: Dressing Dry and Intact, No Drainage Neurological: No New Focal Deficit Psy/Mental Status: Alert, Normal Affect, Normal Mood Consult PN Assessment/Plan POD#: 1 Procedures: Procedures ASSAY CARBAMAZEPINE TOTAL (01/31/18) ASSAY GLUCOSE BLOOD QUANT (03/05/18) ASSAY OF NATRIURETIC PEPTIDE (08/03/14) ASSAY OF PREALBUMIN (04/24/18) ASSAY OF TROPONIN QUANT (08/03/14) ASSAY THYROID STIM HORMONE (02/08/16) C-REACTIVE PROTEIN (08/03/14) CHEST X-RAY 1 VIEW FRONTAL (08/03/14) CHEST X-RAY 2VW FRONTAL&LATL (10/12/14) COMP SCREEN MAMMOGRAM ADD-ON (04/27/16) COMPLETE CBC W/AUTO DIFF WBC (01/31/18) COMPREHEN METABOLIC PANEL (04/24/18) COMPUTER DX MAMMOGRAM ADD-ON (05/24/16) CREATINE MB FRACTION (08/03/14) DXA BONE DENSITY AXIAL (05/06/17) ELECTROCARDIOGRAM TRACING (08/03/14) EMERGENCY DEPT VISIT (08/03/14) EMERGENCY DEPT VISIT (08/02/14) FIBRIN DEGRADATION QUANT (08/03/14) FLUOROSCOPY <1 HR PHYS/QHP (12/09/14) GLYCOSYLATED HEMOGLOBIN TEST (03/05/18) HT MUSCLE IMAGE SPECT MULT (08/06/14) INCISION OF TOE TENDON (12/09/14) LIPID PANEL (01/31/18) METABOLIC PANEL TOTAL CA (10/12/14) MR-STAPH DNA AMP PROBE (10/26/14) MRI JNT OF LWR EXTRE W/O DYE (03/31/18) MRI JOINT UPR EXTREM W/O DYE (02/07/16) PERQ DEV BREAST 1ST STRTCTC (05/24/16) PROTHROMBIN TIME (04/24/18) REPAIR DEFORMITY OF TOE (12/09/14) REPAIR OF HAMMERTOE (12/09/14) ROUTINE VENIPUNCTURE (02/08/16) SCR MAMMO BI INCL CAD (05/13/18) THROMBOPLASTIN TIME PARTIAL (04/24/18) TTE W/DOPPLER COMPLETE (07/01/15) X-RAY EXAM CHEST 2 VIEWS (04/24/18) X-RAY EXAM OF SHOULDER (02/01/16) X-RAY EXAM SURGICAL SPECIMEN (05/24/16) (1) S/P total knee arthroplasty SNOMED Code(s): 5237859036938, 975783140, 6632820493068 Code(s): Z96.659 - PRESENCE OF UNSPECIFIED ARTIFICIAL KNEE JOINT Priority: High Current Visit: Yes Qualifiers: Laterality: right Qualified Code(s): Z96.651 - Presence of right artificial knee joint (2) Osteopenia SNOMED Code(s): 858675883 Code(s): M85.80 - OTH DISRD OF BONE DENSITY AND STRUCTURE, UNSPECIFIED SITE Priority: Low Current Visit: No Qualifiers: Osteopenia location: unspecified Qualified Code(s): M85.80 - Other specified disorders of bone density and structure, unspecified site (3) Bicuspid aortic valve SNOMED Code(s): 82159187 Code(s): Q23.1 - CONGENITAL INSUFFICIENCY OF AORTIC VALVE Priority: Low Current Visit: Yes (4) GERD (gastroesophageal reflux disease) SNOMED Code(s): 420014724 Code(s): K21.9 - GASTRO-ESOPHAGEAL REFLUX DISEASE WITHOUT ESOPHAGITIS Priority: Medium Current Visit: Yes Qualifiers: Esophagitis presence: esophagitis presence not specified Qualified Code(s) : K21.9 - Gastro-esophageal reflux disease without esophagitis (5) Mitral valve prolapse SNOMED Code(s): 071108599 Code(s): I34.1 - NONRHEUMATIC MITRAL (VALVE) PROLAPSE Priority: Low Current Visit: Yes (6) Postmenopausal Priority: Low Current Visit: Yes (7) Asthma SNOMED Code(s): 953037758 Code(s): J45.909 - UNSPECIFIED ASTHMA, UNCOMPLICATED Priority: Low Current Visit: No Qualifiers: Asthma severity: unspecified severity Asthma persistence: unspecified Asthma complication type: unspecified Qualified Code(s): J45.909 - Unspecified asthma, uncomplicated (8) Atypical chest pain SNOMED Code(s): 904467734 Code(s): R07.89 - OTHER CHEST PAIN Current Visit: No (9) Bipolar disorder SNOMED Code(s): 55920365 Code(s): F31.9 - BIPOLAR DISORDER, UNSPECIFIED Priority: Low Current Visit: No Qualifiers: Active/Remission status: remission status unspecified Qualified Code(s): F31.9 - Bipolar disorder, unspecified (10) HTN (hypertension) SNOMED Code(s): 29865977 Code(s): I10 - ESSENTIAL (PRIMARY) HYPERTENSION Priority: Low Current Visit: No Qualifiers: Hypertension type: unspecified Qualified Code(s): I10 - Essential (primary ) hypertension (11) Migraines SNOMED Code(s): 68383181 Code(s): G43.909 - MIGRAINE, UNSP, NOT INTRACTABLE, WITHOUT STATUS MIGRAINOSUS Priority: Low Current Visit: No Qualifiers: Migraine type: unspecified Status migrainosus presence: without status migrainosus Intractability: not intractable Qualified Code(s): G43.909 - Migraine, unspecified, not intractable, without status migrainosus (12) Sciatica SNOMED Code(s): 45804983 Code(s): M54.30 - SCIATICA, UNSPECIFIED SIDE Priority: Low Current Visit : No Qualifiers: Laterality: unspecified laterality Qualified Code(s): M54.30 - Sciatica, unspecified side Problem List Initiated/Reviewed/Updated: Yes Plan: I/P: Acute: S/P right total knee arthroplasty - post-operative day 1 -DVT prophylaxis and pain management per primary care team -PT/OT -IS/RT -Monitor oxygen saturation -Titrate oxygen as needed -Vital signs stable -Monitor labs -Pre-operative Hgb was 12.3; today 11.8 -eGFR today >60 Osteoarthritis of knee -Pain management per primary care team Chronic: Depression Abnormal glucose (IFG) Asthma Bipolar Britta vaginitis Low bilirubin Allergies Murmur- bicuspid aortic valve HTN Osteopenia Post-menopause GERD Fatigue Migraines Mitral valve prolapse Sciatica Plan: CM for discharge planning GI prophylaxis: Pepcid DVT/PE prophylaxis: JESSICA holland, SCD, ASA Home medications as indicated Other orders as listed above Routine AM labs She is a full code. Her PCP is Mickie Frye [facility]. From a hospitalist standpoint Riana is doing well. She has been ambulating with therapies. Pain is controlled at 2/10, 5/10 with ambulation. She has urinated. No concerns from nursing. She is clear for discharge today pending primary team agreement. Thank you for allowing us to participate in the care of this patient!!
--- NOTE | 2018-05-20 08:10 | PCM.SURGPN ---
- General Info Date of Service: 05/20/18 POD#: 1 Functional Status: Reports: Pain Controlled, Tolerating Diet, Ambulating, Urinating, Incentive Spirometry - Review of Systems Musculoskeletal: Reports: Other (The pt feels prepared for discharge to home.) - Patient Data Vitals - Most Recent: Last Vital Signs Temp 98.1 F 05/20/18 04:54 Pulse 92 05/20/18 04:54 Resp 16 05/20/18 04:54 BP 104/51 L 05/20/18 04:54 Pulse Ox 94 L 05/20/18 05:14 Weight - Most Recent: 120 lb I&O - Last 24 Hours: Intake & Output 05/19/18 05/20/18 05/20/18 22:59 06:59 14:59 Intake Total 860 450 Output Total 2050 Balance 860 -1600 Lab Results Last 24 Hrs: Laboratory Results - last 24 hr 05/20/18 05/20/18 Range/Units 05:23 05:23 WBC 10.77 H (3.98-10.04) K/mm3 RBC 3.61 L (3.98-5.22) M/mm3 Hgb 11.8 (11.2-15.7) gm/L Hct 34.8 (34.1-44.9) % MCV 96.4 H (79.4-94.8) fl MCH 32.7 H (25.6-32.2) pg MCHC 33.9 (32.2-35.5) g/dl RDW Std Deviation 42.5 (36.4-46.3) fL Plt Count 291 (182-369) K/mm3 MPV 8.7 L (9.4-12.3) fl Sodium 134 L (136-145) mEq/L Potassium 4.4 (3.5-5.1) mEq/L Chloride 102 (98-107) mEq/L Carbon Dioxide 25 (21-32) mEq/L Anion Gap 11.4 (5-15) BUN 10 (7-18) mg/dL Creatinine 0.8 (0.55-1.02) mg/dL Est Cr Clr Drug Dosing 52.20 mL/min Estimated GFR (MDRD) > 60 (>60) mL/min BUN/Creatinine Ratio 12.5 L (14-18) Glucose 124 H (80-115) mg/dL Calcium 8.3 L (8.5-10.1) mg/dL Total Bilirubin 0.3 (0.2-1.0) mg/dL AST 21 (15-37) U/L ALT 30 (14-59) U/L Alkaline Phosphatase 65 (46-116) U/L Total Protein 6.3 L (6.4-8.2) g/dl Albumin 3.3 L (3.4-5.0) g/dl Globulin 3.0 gm/dL Albumin/Globulin Ratio 1.1 (1-2) Med Orders - Current: Current Medications Albuterol (Proventil Hfa) 0 gm INH Q4H PRN PRN Reason: Shortness of Breath Albuterol (Proventil Neb Soln) 1.25 mg INH Q6H PRN PRN Reason: Shortness of Breath Aspirin (Ecotrin) 325 mg PO BID [facility] Bisacodyl (Dulcolax) 5 mg PO DAILY PRN PRN Reason: Constipation Carbamazepine (Tegretol) 500 mg PO BEDTIME [facility] Last Admin: 05/19/18 20:11 Dose: 500 mg Cholecalciferol (Vitamin D3) 5,000 unit PO DAILY [facility] Cyclobenzaprine HCl (Flexeril) 10 mg PO TID PRN PRN Reason: Spasms Docusate Sodium (Colace) 100 mg PO BID [facility] Last Admin: 05/19/18 20:10 Dose: 100 mg Estradiol (Estradiol) 0.5 mg PO BEDTIME [facility] Last Admin: 05/19/18 20:10 Dose: 0.5 mg Famotidine (Pepcid) 20 mg PO Q12H [facility] Last Admin: 05/19/18 20:10 Dose: 20 mg Flunisolide (Nasalide Nasal [place]) 0 ml KENNEY BID [facility] Last Admin: 05/19/18 20:11 Dose: 2 spray Guaifenesin (Mucinex) 600 mg PO BID PRN PRN Reason: cough/cold Cefazolin Sodium/Dextrose 2 gm (/ Premix) 50 mls @ 100 mls/hr IV Q8H [facility] Stop: 05/20/18 10:29 Last Admin: 05/20/18 01:13 Dose: 100 mls/hr Ketorolac Tromethamine (Toradol) 15 mg IVPUSH Q6H PRN PRN Reason: Pain Loratadine (Claritin) 10 mg PO BEDTIME [facility] Last Admin: 05/19/18 20:10 Dose: 10 mg Losartan Potassium (Cozaar) 50 mg PO DAILY [facility] Magnesium Hydroxide (Milk Of Magnesia) 30 ml PO BID PRN PRN Reason: Constipation Morphine Sulfate (Morphine) 2 mg IVPUSH Q2H PRN PRN Reason: Breakthrough Pain Naloxone HCl (Narcan) 0.1 mg IVPUSH Q5M PRN PRN Reason: Oversedation Nitroglycerin (Nitrostat) 0.4 mg SL ONETIME PRN PRN Reason: Chest Pain Ondansetron HCl (Zofran) 4 mg IVPUSH Q6H PRN PRN Reason: Nausea/Vomiting Last Admin: 05/19/18 13:22 Dose: 4 mg Oxycodone/Acetaminophen (Percocet 325-5 Mg) 1 - 2 tab PO Q4H PRN PRN Reason: Pain Last Admin: 05/20/18 01:12 Dose: 2 tab Rizatriptan 10 Mg 0 each PO Q2H PRN PRN Reason: Headache Risperidone (Risperidal) 3 mg PO BEDTIME [facility] Last Admin: 05/19/18 20:11 Dose: 3 mg Senna (Senna) 8.6 mg PO BID PRN PRN Reason: Constipation Discontinued Medications Acetaminophen (Tylenol) 975 mg PO ONETIME [facility] Stop: 05/19/18 18:00 Last Admin: 05/19/18 09:10 Dose: 975 mg Bupivacaine HCl (Sensorcaine-Mpf 0.75%) Confirm Administered Dose 30 ml .ROUTE .STK-MED ONE Stop: 05/19/18 07:43 Bupivacaine HCl (Marcaine 0.25%) Confirm Administered Dose 30 ml .ROUTE .STK- MED ONE Stop: 05/19/18 08:12 Last Admin: 05/19/18 11:17 Dose: 30 ml Bupivacaine HCl (Sensorcaine-Mpf 0.25%) Confirm Administered Dose 10 ml .ROUTE .STK-MED ONE Stop: 05/19/18 08:14 Last Admin: 05/19/18 11:43 Dose: 4 ml Cefazolin Sodium (Ancef) Confirm Administered Dose 1 gm .ROUTE .STK-MED ONE Stop: 05/19/18 07:43 Cefazolin Sodium (Ancef) Confirm Administered Dose 2 gm .ROUTE .STK-MED ONE Stop: 05/19/18 08:12 Last Admin: 05/19/18 11:13 Dose: 2 gm Cefazolin Sodium (Ancef) Confirm Administered Dose 1 gm .ROUTE .ST-MED ONE Stop: 05/19/18 09:01 Morphine Sulfate 8 mg/Epinephrine HCl 0.3 mg/Cefuroxime Sodium 750 mg/Ketorolac Tromethamine 30 mg/Sodium Chloride 27.9 ml 0 mg .XX ONETIME ONE Stop: 05/19/18 10:01 Last Admin: 05/19/18 11:16 Dose: 788.3 mg Dexamethasone (Dexamethasone) Confirm Administered Dose 20 mg .ROUTE .ST-MED ONE Stop: 05/19/18 07:43 Epinephrine HCl (Adrenalin) Confirm Administered Dose 1 mg .ROUTE .ST-MED ONE Stop: 05/19/18 08:42 Fentanyl (Sublimaze) Confirm Administered Dose 100 mcg .ROUTE .ST-MED ONE Stop: 05/19/18 07:42 Lactated Ringer's (Ringers, Lactated) 1,000 mls @ 125 mls/hr IV ASDIRECTED [facility] Stop: 05/19/18 23:00 Last Admin: 05/19/18 08:30 Dose: 125 mls/hr Lidocaine HCl (Xylocaine-Mpf 1%) Confirm Administered Dose 4 mls @ as directed .ROUTE .[facility] ONE Stop: 05/19/18 07:43 Iodine (Iodine 2% Mild Tincture) Confirm Administered Dose 30 ml .ROUTE .ST- MED ONE Stop: 05/19/18 08:12 Last Admin: 05/19/18 11:11 Dose: 18 ml Ketamine HCl (Ketalar) Confirm Administered Dose 500 mg .ROUTE .ST-MED ONE Stop: 05/19/18 07:42 Ketorolac Tromethamine (Toradol) Confirm Administered Dose 30 mg .ROUTE .[facility] ONE Stop: 05/19/18 07:43 Lidocaine/Sodium Bicarbonate (Buffered Lidocaine 1% In Ns 8.4%) 0.25 ml IDERM ONETIME PRN PRN Reason: Prior to IV Start Stop: 05/19/18 18:00 Last Admin: 05/19/18 08:29 Dose: 0.25 ml Midazolam HCl (Versed 1 Mg/Ml) Confirm Administered Dose 2 mg .ROUTE .STK-MED ONE Stop: 05/19/18 07:42 Ondansetron HCl (Zofran) Confirm Administered Dose 4 mg .ROUTE .STK-MED ONE Stop: 05/19/18 07:43 Oxycodone HCl (Oxycontin) 10 mg PO ONETIME [facility] Stop: 05/19/18 18:00 Last Admin: 05/19/18 09:10 Dose: 10 mg Pregabalin (Lyrica) 50 mg PO ONETIME [facility] Stop: 05/19/18 18:00 Last Admin: 05/19/18 09:10 Dose: 50 mg Propofol (Diprivan 20 Ml) Confirm Administered Dose 600 mg .ROUTE .STK-MED ONE Stop: 05/19/18 07:42 Ropivacaine (Naropin 0.5%) Confirm Administered Dose 30 ml .ROUTE .STK-MED ONE Stop: 05/19/18 08:42 Scopolamine (Transderm-Scop) 1.5 mg TOP ONETIME ONE Stop: 05/19/18 12:46 Last Admin: 05/19/18 13:42 Dose: 1.5 mg Sodium Chloride (Saline Flush) 10 ml FLUSH ASDIRECTED PRN PRN Reason: Keep Vein Open Stop: 05/19/18 18:00 Tranexamic Acid (Cyklokapron) Confirm Administered Dose 1,000 mg .ROUTE .STK- MED ONE Stop: 05/19/18 08:12 Last Admin: 05/19/18 11:22 Dose: 1,000 mg Triamcinolone Acetonide (Kenalog-40) Confirm Administered Dose 80 mg .ROUTE .STK -MED ONE Stop: 05/19/18 08:12 Last Admin: 05/19/18 11:43 Dose: 80 mg Vancomycin HCl (Vancomycin) Confirm Administered Dose 1 gm .ROUTE .STK-MED ONE Stop: 05/19/18 08:12 Last Admin: 05/19/18 11:18 Dose: 1 gm - Exam Wound/Incisions: Dressing Dry and Intact General: Alert, Cooperative, No Acute Distress Lungs: Normal Respiratory Effort Extremities: Other (NVS intact for BLE. Corbin's negative for BLE.) - Problem List Review Problem List Initiated/Reviewed/Updated: Yes - My Orders Last 24 Hours: Active Orders 24 hr Category Date Time Status Regular Diet [DIET] Diet 05/19/18 Lunch Active Acetaminophen/oxyCODONE [Percocet 325-5 MG] Med 05/19/18 12:00 Active 1 - 2 tab PO Q4H PRN Albuterol [Proventil HFA] Med 05/19/18 11:52 Active 0 gm INH Q4H PRN Albuterol [Proventil Neb Soln] Med 05/19/18 11:52 Active 1.25 mg INH Q6H PRN Aspirin [Ecotrin] Med 05/20/18 09:00 Active 325 mg PO BID Bisacodyl [Dulcolax] Med 05/19/18 12:00 Active 5 mg PO DAILY PRN Cholecalciferol (Vitamin D3) [Vitamin D3] Med 05/20/18 09:00 Active 5,000 unit PO DAILY Cyclobenzaprine [Flexeril] Med 05/19/18 12:00 Active 10 mg PO TID PRN Docusate Sodium [Colace] Med 05/19/18 21:00 Active 100 mg PO BID Estradiol Med 05/19/18 21:00 Active 0.5 mg PO BEDTIME Famotidine [Pepcid] Med 05/19/18 21:00 Active 20 mg PO Q12H Flunisolide [Nasalide Nasal [place]] Med 05/19/18 21:00 Active 0 ml KENNEY BID Ketorolac [Toradol] Med 05/19/18 12:00 Active 15 mg IVPUSH Q6H PRN Loratadine [Claritin] Med 05/19/18 21:00 Active 10 mg PO BEDTIME Losartan [Cozaar] Med 05/20/18 09:00 Active 50 mg PO DAILY Magnesium Hydroxide [Milk of Magnesia] Med 05/19/18 12:00 Active 30 ml PO BID PRN Morphine Med 05/19/18 12:00 Active 2 mg IVPUSH Q2H PRN Naloxone [Narcan] Med 05/19/18 12:00 Active 0.1 mg IVPUSH Q5M PRN Nitroglycerin [Nitrostat] Med 05/19/18 11:52 Active 0.4 mg SL ONETIME PRN Ondansetron [Zofran] Med 05/19/18 12:00 Active 4 mg IVPUSH Q6H PRN Patient's Own Medication [Ptom] Med 05/19/18 11:52 Active 0 each PO Q2H PRN Sennosides [Senna] Med 05/19/18 12:00 Active 8.6 mg PO BID PRN carBAMazepine [TEGretol] Med 05/19/18 21:00 Active 500 mg PO BEDTIME ceFAZolin [Ancef] 2 gm Med 05/19/18 18:00 Active Premix Bag 1 bag IV Q8H guaiFENesin [Mucinex] Med 05/19/18 21:00 Active 600 mg PO BID PRN risperiDONE [RisperiDAL] Med 05/19/18 21:00 Active 3 mg PO BEDTIME Medication Orders Albuterol (Proventil Hfa) 0 gm INH Q4H PRN PRN Reason: Shortness of Breath Albuterol (Proventil Neb Soln) 1.25 mg INH Q6H PRN PRN Reason: Shortness of Breath Aspirin (Ecotrin) 325 mg PO BID [facility] Bisacodyl (Dulcolax) 5 mg PO DAILY PRN PRN Reason: Constipation Carbamazepine (Tegretol) 500 mg PO BEDTIME [facility] Last Admin: 05/19/18 20:11 Dose: 500 mg Cholecalciferol (Vitamin D3) 5,000 unit PO DAILY [facility] Cyclobenzaprine HCl (Flexeril) 10 mg PO TID PRN PRN Reason: Spasms Docusate Sodium (Colace) 100 mg PO BID [facility] Last Admin: 05/19/18 20:10 Dose: 100 mg Estradiol (Estradiol) 0.5 mg PO BEDTIME [facility] Last Admin: 05/19/18 20:10 Dose: 0.5 mg Famotidine (Pepcid) 20 mg PO Q12H [facility] Last Admin: 05/19/18 20:10 Dose: 20 mg Flunisolide (Nasalide Nasal [place]) 0 ml KENNEY BID [facility] Last Admin: 05/19/18 20:11 Dose: 2 spray Guaifenesin (Mucinex) 600 mg PO BID PRN PRN Reason: cough/cold Cefazolin Sodium/Dextrose 2 gm (/ Premix) 50 mls @ 100 mls/hr IV Q8H [facility] Stop: 05/20/18 10:29 Last Admin: 05/20/18 01:13 Dose: 100 mls/hr Infusion: 05/19/18 18:36 Dose: 100 mls/hr Admin: 05/19/18 18:06 Dose: 100 mls/hr Ketorolac Tromethamine (Toradol) 15 mg IVPUSH Q6H PRN PRN Reason: Pain Loratadine (Claritin) 10 mg PO BEDTIME [facility] Last Admin: 05/19/18 20:10 Dose: 10 mg Losartan Potassium (Cozaar) 50 mg PO DAILY [facility] Magnesium Hydroxide (Milk Of Magnesia) 30 ml PO BID PRN PRN Reason: Constipation Morphine Sulfate (Morphine) 2 mg IVPUSH Q2H PRN PRN Reason: Breakthrough Pain Naloxone HCl (Narcan) 0.1 mg IVPUSH Q5M PRN PRN Reason: Oversedation Nitroglycerin (Nitrostat) 0.4 mg SL ONETIME PRN PRN Reason: Chest Pain Ondansetron HCl (Zofran) 4 mg IVPUSH Q6H PRN PRN Reason: Nausea/Vomiting Last Admin: 05/19/18 13:22 Dose: 4 mg Oxycodone/Acetaminophen (Percocet 325-5 Mg) 1 - 2 tab PO Q4H PRN PRN Reason: Pain Last Admin: 05/20/18 01:12 Dose: 2 tab Admin: 05/19/18 20:23 Dose: 2 tab Rizatriptan 10 Mg 0 each PO Q2H PRN PRN Reason: Headache Risperidone (Risperidal) 3 mg PO BEDTIME [facility] Last Admin: 05/19/18 20:11 Dose: 3 mg Senna (Senna) 8.6 mg PO BID PRN PRN Reason: Constipation - Assessment Assessment (Free Text/Narrative):: POD#1 - right TKA - Plan Plan (Free Text/Narrative):: 1. Hgb 11.8.2. 2. 325mg ASA BID. Frequent mobility and TEDs discussed. 3. Discharge to home today. 4. Outpatient P.T. The pt's case was discussed with Dr. Johnson.
[2018-05-20] MEDS: Docusate Sodium 100 MG Cap PO SCH (08:13)
[2018-05-20] MEDS: Famotidine 20 MG Tab PO SCH (08:13)
[2018-05-20 08:16] VITALS: BP 134/60
--- NOTE | 2018-05-20 08:17 | PCM48HPAN ---
Post Anesthesia Note - EVALUATION WITHIN 48HRS OF ANESTHETIC Vital Signs in Normal Range: Yes Patient Participated in Evaluation: Yes Respiratory Function Stable: Yes Airway Patent: Yes Cardiovascular Function Stable: Yes Hydration Status Stable: Yes Pain Control Satisfactory: Yes Nausea and Vomiting Control Satisfactory: Yes Mental Status Recovered: Yes (sitting up in bed with no co) Pulse Rate: 90 Resp Rate: 18 Temperature: 98.4 F Blood Pressure: 134/60
[2018-05-20] MEDS ORDERED: Aspirin 325 MG Tab.EC PO SCH (09:00)
[2018-05-20] MEDS ORDERED: Losartan 25 MG Tab PO SCH (09:00)
[2018-05-20] MEDS ORDERED: Cholecalciferol (Vitamin D3) 5,000 UNIT Tab PO SCH (09:00)
--- NOTE | 2018-05-27 08:39 | PCM.OPNOTE ---
- General Post-Op/Procedure Note Date of Surgery/Procedure: 05/19/18 Operative Procedure(s): right total knee arthroplasty with left knee corticosteroid injection Pre Op Diagnosis: bilateral knee osteoarthrosis Post-Op Diagnosis: Same Anesthesia Technique: Local, MAC, Spinal Primary Surgeon: Zach Johnson Anesthesia Provider: Marysol Horner Timber Faller: Hilary Dixon Timber Faller: Holly Vasquez EBL in mLs: 5 Complications: None Condition: Good
--- NOTE | 2018-05-27 09:36 | OR ---
DATE OF OPERATION: 05/19/2018 SURGEON: Zach Johnson MD OPERATION PERFORMED: Right total knee arthroplasty with left knee corticosteroid injection. PREOPERATIVE DIAGNOSIS: Bilateral knee osteoarthritis. POSTOPERATIVE DIAGNOSIS: Bilateral knee osteoarthritis. ANESTHESIA TECHNIQUE: Local MAC with spinal. ANESTHESIA PROVIDER: Isadora Coleman. TYPE CASTING MACHINE OPERATOR: Hilary Dixon PA-C, and Holly Vasquez LPN. ESTIMATED BLOOD LOSS: 5 mL. COMPLICATIONS: None. CONDITION: Stable. IMPLANTS: 1. Heather size 3 cemented PS femur. 2. Heather size 3 universal tibial base plate. 3. Heather size 3, 9 mm PS X3 polyethylene PS. 4. [place] size 29 x 9 mm asymmetric patella. DESCRIPTION OF PROCEDURE: The patient was identified in the preop holding area. Proper site was marked and identified by the surgeon. The patient was taken back to the operating theater. After adequate anesthesia, the patient's right lower extremity had a nonsterile tourniquet applied and it was then sterilely prepped and draped in the usual sterile fashion. OR timeout was performed. The patient received 2 g IV Ancef. At this time, right lower extremity was exsanguinated. Tourniquet was insufflated to 300 mmHg. Standard medial parapatellar incision was made. Medial parapatellar arthrotomy was created. Deep fibers of the MCL were raised and anterior fat pad was resected. At this time, attention was turned to the patella. Patella measured 18, it was resected to a 13 for 29 x 9 mm patella. Drill holes were then drilled and found to be in adequate position. The drill was then drilled in the distal femur and the intramedullary distal femoral cutting guide was then placed. 8 mm was resected off the distal femur and was found to be an adequate resection. Sizing guide was placed. It was found to be a Heather size 3 femur that was shown on the implant record at the beginning of this dictation. The drill holes were drilled for the epicondylar axis using [place] line and epicondyles as reference. At this time, the 4-in-1 cutting block was placed. An anterior posterior and anterior and posterior chamfer cuts were then completed. The correct size box cut was then placed and the box cut was completed and found to be an adequate resection. Attention was turned to the tibia. The posterior medial lateral retractors were placed. The extramedullary tibial guide was placed. It was placed in the old footprint of the ACL. It was aligned with the center of the ankle and 0 degrees of slope, 9 mm was then resected off the unaffected lateral side. There was found to be an acceptable reduction. At this time, posterior osteophytes were removed along with medial and lateral meniscus. A trial implant was placed with a correct sized tibia that was mentioned at the beginning of the dictation. A [place] size 3, 9 mm PS X3 polyethylene was then placed. The patient's knee was brought through range of motion. The patella was tracking centrally and was stable to varus and valgus stress. Alignment was found to be roughly at 0 degrees. At this time, cement was mixed on the back table. The tibia was stamped and drilled in proper rotation. All cut surfaces were irrigated with pulse lavage irrigation with Ancef and then completely dried. Once this was completed, then the cement was ready. The universal tibial base plate was cemented in place. Next, the Heather size [address] and the Heather size 3, 9 mm PS X3 polyethylene was placed. The patient's knee was brought into full extension. Excess cement was removed. The patella was then cemented in place at this time. Tourniquet was deflated. One liter dilute Betadine solution was irrigated through the knee along with 3 L of pulse lavage irrigation with Ancef. Periarticular injection was then completed. The patient's knee was brought through a range of motion. Once the cement had time to set up and it was found to be stable to varus valgus stress, the patella was tracking centrally with full range of motion. At this time, a #2 barbed suture was used for closure of the medial parapatellar arthrotomy. Topical tranexamic acid was placed. 2-0 Vicryl was used subcutaneously, a running 3-0 Monocryl was used subcuticularly. The patient tolerated the procedure well and was sent to the PACU in stable condition. After this procedure was completed, 2 mL of 40 mg Kenalog, 4 mL of 0.25% Marcaine were injected into the patient's left knee. She tolerated both procedures well. ANESTHESIA: MMODAL /[id number]
== END 2018-05-20 11:58 | disposition home or self-care (01) ==
LOC: JD.SDS 07:05 → JD.MS 13:16 → JD.SDS 05-20 11:58
PROVIDERS: ATTEND Orthopaedic Surgery
DX: M17.0 Bilateral primary osteoarthritis of knee (principal); J45.909 Unspecified asthma, uncomplicated; I10 Essential (primary) hypertension; I34.1 Nonrheumatic mitral (valve) prolapse; K21.9 Gastro-esophageal reflux disease without esophagitis; Z79.82 Long term (current) use of aspirin; Z79.51 Long term (current) use of inhaled steroids; Z79.899 Other long term (current) drug therapy; Z88.5 Allergy status to narcotic agent; Z88.1 Allergy status to other antibiotic agents; Z88.2 Allergy status to sulfonamides; Z88.8 Allergy status to other drugs, medicaments and biological substances; Z91.040 Latex allergy status; Z91.048 Other nonmedicinal substance allergy status
CPT/HCPCS: 20610; 27442; 36415; 64450; 73560; 80053; 85027; 87641; 97110; 97116; 97161; 97165; 97535; A9270; C1713; C1776; J0171; J0690; J0697; J1100; J1885; J2001; J2250; J2270; J2405; J2795; J3301; J3370; J3490; J7120; 01402; J2704; J3010

== ENCOUNTER 2019-01-01 08:17 | Emergency (ER) | payer MEDICARE, BC ==
[2019-01-01] MEDS ORDERED: Sodium Chloride 0.9% 10 ML Syringe FLUSH PRN (08:27)
[2019-01-01] MEDS ORDERED: Aspirin 81 MG Tab.Chew PO ONE (08:27)
[2019-01-01] MEDS ORDERED: Sodium Chloride 0.9% 1,000 ML IV SCH (08:30)
--- NOTE | 2019-01-01 09:09 | CR ---
Chest: Frontal view of the chest was obtained. Comparison: Prior chest x-ray of 12/23/18. Heart size is normal. Tortuous thoracic aorta is seen. Previous right shoulder surgery is noted. Lungs are clear with no acute parenchymal change. Slight scarring is seen within the left base. Surgical clips are noted from prior cholecystectomy. Scoliosis is noted within the spine. Rib deformity is noted within the left fourth rib which appears old. Impression: 1. Incidental findings. Nothing acute is appreciated on frontal chest x-ray. Diagnostic code #2
--- NOTE | 2019-01-01 10:09 | EDM.PDOC ---
ED HPI GENERAL MEDICAL PROBLEM - General Chief Complaint: Cardiovascular Problem Stated Complaint: CAME FROM RADIOLOGY Time Seen by Provider: 01/01/19 08:21 Source of Information: Reports: Patient, Provider History Limitations: Reports: No Limitations - History of Present Illness INITIAL COMMENTS - FREE TEXT/NARRATIVE: The patient presents from cardiac rehab for chest pain and hypotension. The patient was getting a stress test for medical clearance for knee replacement with Dr Johnson in December. She had some chest discomfort which most people do with the Lexiscan but it did not go away. She also did not feel good and was lightheaded. Her BP went down as low as 55 systolic. The provider had the patient lay down and her BP improved. She was brought over for the chest pain and not feeling well. 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 She has no history of OR. She does have hypertension that she is being treated for. She does not smoke. She does not have hypercholesterolemia that she knows of. She did not eat since last night and she is hungry. She cannot eat yet because the second part of the stress test is not done yet. She denies fever, chills, cough , shortness of breath, abdominal pain, nausea or vomiting. Onset: Sudden Duration: Minutes: Location: Reports: Chest Quality: Reports: Other ("funny feeling") Severity: Mild Improves with: Reports: None Worsens with: Reports: None Associated Symptoms: Reports: Chest Pain. Denies: Cough, Fever/Chills, Headaches, Nausea/Vomiting, Shortness of Breath - Related Data Allergies Allergy/AdvReac Type Severity Reaction Status Date / Time codeine Allergy Rash Verified 05/19/18 13:48 guaifenesin [From Entex LA] Allergy Rash Verified 05/19/18 13:48 latex Allergy Cannot Verified 05/19/18 13:48 Remember levofloxacin [From Levaquin] Allergy Cannot Verified 05/19/18 13:48 Remember lisinopril Allergy Cannot Verified 05/19/18 13:48 Remember losartan Allergy Cannot Verified 05/19/18 13:48 Remember phenylephrine HCl Allergy Rash Verified 05/19/18 13:48 [From Entex LA] phenylpropanolamine HCl Allergy Rash Verified 05/19/18 13:48 [From Entex LA] potassium Allergy Cannot Verified 05/19/18 13:48 Remember Sulfa (Sulfonamide Allergy Cannot Verified 05/19/18 13:48 Antibiotics) Remember montelukast sodium AdvReac Drowsiness Verified 05/19/18 13:48 [From Singulair] tetracycline [Tetracycline] AdvReac Nausea and Verified 05/19/18 13:48 Vomiting metals Allergy Cannot Uncoded 05/19/18 13:48 Remember Home Meds: Home Meds Estradiol 0.5 mg PO DAILY 08/02/14 [History] carBAMazepine [TEGretol] 500 mg PO BEDTIME 08/02/14 [History] risperiDONE [Risperdal] 3 mg PO BEDTIME 08/02/14 [History] Nitroglycerin 0.4 mg SL ONETIME PRN #1 tab.subl 08/03/14 [Rx] Albuterol Sulfate 1 dose INH Q6H PRN 11/03/14 [History] Albuterol [Proair HFA] 2 puff INH Q4H PRN 11/03/14 [History] Cetirizine [ZyrTEC] 10 mg PO BEDTIME 11/03/14 [History] Fluticasone Propionate [Flonase] 2 spray KENNEY BID 11/03/14 [History] Rizatriptan Benzoate [Rizatriptan] 10 mg PO Q2H PRN 11/03/14 [History] guaiFENesin [Mucinex] 600 mg PO BID PRN 11/03/14 [History] Cholecalciferol (Vitamin D3) [Vitamin D3] 5,000 unit PO DAILY 05/16/18 [History] Olmesartan [Benicar] 20 mg PO DAILY 05/16/18 [History] Acetaminophen/oxyCODONE [Percocet 325-5 MG] 1 - 2 tab PO Q6H PRN #60 tablet 01/05 [Rx] Aspirin [Ecotrin] 325 mg PO BID #84 tab.ec 05/19/18 [Rx] Bisacodyl [Dulcolax] 5 mg PO DAILY PRN tablet 05/19/18 [Rx] Docusate Sodium [Colace] 100 mg PO BID cap 05/19/18 [Rx] Famotidine [Pepcid] 20 mg PO Q12H tablet 05/19/18 [Rx] Magnesium Hydroxide [Milk of Magnesia] 30 ml PO BID PRN cup 05/19/18 [Rx] Sennosides [Senna] 8.6 mg PO BID PRN tablet 05/19/18 [Rx] Past Medical History HEENT History: Reports: Allergic Rhinitis, Impaired Vision, Sinusitis, Other ( See Below) Other HEENT History: eustachian tybe dysfunction, bilateral serous otitis media , dental abcess Cardiovascular History: Reports: Heart Murmur, Hypertension, Other (See Below) Other Cardiovascular History: mitral valve prolapse, patent ductous arteriosis repair at 5 years old Respiratory History: Reports: Asthma, Bronchitis, Recurrent Gastrointestinal History: Reports: GERD PERMACULTURE DESIGNER History: Reports: Other (See Below) Other PERMACULTURE DESIGNER History: candidal vagintits, menopausal, breast microcalcifications , hot flashes, tubal Musculoskeletal History: Reports: Other (See Below) Other Musculoskeletal History: hammertoe, sicatica, left shoulder pain Neurological History: Reports: Migraines, Other (See Below) Other Neuro History: trigeminal neuralgia Psychiatric History: Reports: Bipolar Endocrine/Metabolic History: Reports: Other (See Below) Other Endocrine/Metabolic History: vitamin b12 deficiency Hematologic History: Reports: Anemia Immunologic History: Reports: None Oncologic (Cancer) History: Reports: Basal Cell Carcinoma Dermatologic History: Reports: Other (See Below) Other Dermatologic History: bCC - Past Surgical History Head Surgeries/Procedures: Reports: None HEENT Surgical History: Reports: Myringotomy w Tube(s), Naso-Sinus Surgery, Tonsillectomy Cardiovascular Surgical History: Reports: None Respiratory Surgical History: Reports: None Female Surgical History: Reports: Hysterectomy, Oophorectomy, Tubal Ligation Neurological Surgical History: Reports: None Musculoskeletal Surgical History: Reports: Shoulder Surgery Oncologic Surgical History: Reports: None Social & Family History - Tobacco Use Smoking Status *Q: Never Smoker Second Hand Smoke Exposure: No - Caffeine Use Caffeine Use: Reports: Tea - Recreational Drug Use Recreational Drug Use: No ED ROS GENERAL - Review of Systems Review Of Systems: See Below Constitutional: Reports: No Symptoms HEENT: Reports: No Symptoms Respiratory: Reports: No Symptoms Cardiovascular: Reports: Chest Pain (Funny feeling) Endocrine: Reports: No Symptoms GI/Abdominal: Reports: No Symptoms : Reports: No Symptoms ED EXAM, GENERAL - Physical Exam Exam: See Below Exam Limited By: No Limitations General Appearance: Alert, No Apparent Distress Ears: Normal External Exam Nose: Normal Inspection Head: Atraumatic, Normocephalic Neck: Normal Inspection Respiratory/Chest: No Respiratory Distress, Lungs Clear, Normal Breath Sounds Cardiovascular: Regular Rate, Rhythm, No Edema, No Murmur GI/Abdominal: Soft, Non-Tender, No Organomegaly, No Mass Back Exam: Normal Inspection Extremities: Normal Inspection Neurological: Alert, Oriented, No Motor/Sensory Deficits EKG INTERPRETATION EKG Date: 01/01/19 Time: 08:17 Rhythm: Other (sinus tachycardia) Rate (Beats/Min): 103 [place]: LAD-Left [place] Deviation P-Wave: Present QRS: LBBB ST-T: Normal QT: Normal EKG Interpretation Comments: Q waves in the anterior leads Course - Vital Signs Last Recorded V/S: Last Vital Signs Temp 98.4 F 01/01/19 08:20 Pulse 105 H 01/01/19 08:20 Resp 13 01/01/19 08:20 BP 138/67 01/01/19 08:20 Pulse Ox 95 01/01/19 08:20 - Orders/Labs/Meds Orders: Active Orders 24 hr Category Date Time Status Cardiac Monitoring [RC] . DIRECTED Care 01/01/19 08:27 Active EKG Documentation Completion [RC] ASDIRECTED Care 01/01/19 11:03 Active EKG Documentation Completion [RC] STAT Care 01/01/19 08:27 Active Peripheral IV Care [RC] . DIRECTED Care 01/01/19 08:27 Active Sodium Chloride 0.9% [Normal Saline] 1,000 ml Med 01/01/19 08:30 Active IV .BOLUS Sodium Chloride 0.9% [Saline Flush] Med 01/01/19 08:27 Active 10 ml FLUSH ASDIRECTED PRN Peripheral IV Insertion Adult [OM.PC] Stat Oth 01/01/19 08:27 Ordered EKG 12 Lead [EK] Stat Ther 01/01/19 11:03 Ordered Medication Orders Sodium Chloride (Normal Saline) 1,000 mls @ 1,000 mls/hr IV .BOLUS IDANIA Last Admin: 01/01/19 08:39 Dose: 1,000 mls/hr Sodium Chloride (Saline Flush) 10 ml FLUSH ASDIRECTED PRN PRN Reason: Keep Vein Open Last Admin: 01/01/19 08:41 Dose: 10 ml Labs: Laboratory Tests 01/01/19 01/01/19 01/01/19 Range/Units 08:20 08:20 11:35 WBC 7.67 (3.98-10.04) K/mm3 RBC 4.19 (3.98-5.22) M/mm3 Hgb 13.4 (11.2-15.7) gm/L Hct 40.3 (34.1-44.9) % MCV 96.2 H (79.4-94.8) fl MCH 32.0 (25.6-32.2) pg MCHC 33.3 (32.2-35.5) g/dl RDW Std Deviation 45.2 (36.4-46.3) fL Plt Count 293 (182-369) K/mm3 MPV 8.4 L (9.4-12.3) fl Neut % (Auto) 60.5 (34.0-71.1) % Lymph % (Auto) 29.6 (19.3-51.7) % Mitchell % (Auto) 8.1 (4.7-12.5) % Eos % (Auto) 1.0 (0.7-5.8) Baso % (Auto) 0.7 (0.1-1.2) % Neut # (Auto) 4.64 (1.56-6.13) K/mm3 Lymph # (Auto) 2.27 (1.18-3.74) K/mm3 Mitchell # (Auto) 0.62 H (0.24-0.36) K/mm3 Eos # (Auto) 0.08 (0.04-0.36) K/mm3 Baso # (Auto) 0.05 (0.01-0.08) K/mm3 Sodium 139 (136-145) mEq/L Potassium 4.0 (3.5-5.1) mEq/L Chloride 102 (98-107) mEq/L Carbon Dioxide 25 (21-32) mEq/L Anion Gap 16.0 H (5-15) BUN 13 (7-18) mg/dL Creatinine 1.0 (0.55-1.02) mg/dL Est Cr Clr Drug Dosing 41.76 mL/min Estimated GFR (MDRD) 55 (>60) mL/min BUN/Creatinine Ratio 13.0 L (14-18) Glucose 120 H (80-115) mg/dL Calcium 9.3 (8.5-10.1) mg/dL Total Bilirubin 0.2 (0.2-1.0) mg/dL AST 19 (15-37) U/L ALT 26 (14-59) U/L Alkaline Phosphatase 91 (46-116) U/L Troponin I < 0.017 < 0.017 (0.00-0.056) ng/mL Total Protein 7.6 (6.4-8.2) g/dl Albumin 4.0 (3.4-5.0) g/dl Globulin 3.6 gm/dL Albumin/Globulin Ratio 1.1 (1-2) Meds: Medications Generic Name Dose Route Start Last Admin Trade Name Freq PRN Reason Stop Dose Admin Sodium Chloride 1,000 mls @ 1,000 mls/hr 01/01/19 08:30 01/01/19 08:39 Normal Saline IV 1,000 mls/hr .BOLUS IDANIA Administration Sodium Chloride 10 ml 01/01/19 08:27 01/01/19 08:41 Saline Flush FLUSH 10 ml ASDIRECTED PRN Administration Keep Vein Open Discontinued Medications Generic Name Dose Route Start Last Admin Trade Name Freq PRN Reason Stop Dose Admin Aspirin 324 mg 01/01/19 08:27 01/01/19 08:39 Aspirin PO 01/01/19 08:28 324 mg ONETIME ONE Administration - Re-Assessments/Exams Free Text/Narrative Re-Assessment/Exam: 01/01/19 10:12 I ordered an IV NS 1L bolus, EKG, CXR, labs and aspirin. Her EKG shows a NSR LBBB with Q waves in the anterior leads. No real change from prior EKGs. Her CXR looks good. Her CBC looks good. Her anion gap was elevated at 16. Her troponin was normal. She went for her scan and she feels better. I will do a repeat EKG and troponin at the 3 hour blanca. 01/01/19 12:23 Her repeat EKG shows no acute changes. Her repeat troponin is negative. I feel she needs to be seen by cardiology. I will have her follow up with Mickie Frye. Departure - Departure Time of Disposition: 12:30 Disposition: Home, Self-Care 01 Condition: Good Clinical Impression: Chest pain Qualifiers: Chest pain type: unspecified Qualified Code(s): R07.9 - Chest pain, unspecified Hypotension Qualifiers: Hypotension type: unspecified hypotension type Qualified Code(s): I95.9 - Hypotension, unspecified Referrals: Mickie Frye, HAND CIGAR MAKING SUPERVISOR [Primary Care Provider] - 1 Week Forms: ED Department Discharge Additional Instructions: Take your medication as prescribed. Follow up with Mickie Frye within a week. Please return if you are worse. - My Orders Last 24 Hours: My Active Orders 01/01/19 08:27 Cardiac Monitoring [RC] . DIRECTED EKG Documentation Completion [RC] STAT Peripheral IV Care [RC] . DIRECTED Sodium Chloride 0.9% [Saline Flush] 10 ml FLUSH ASDIRECTED PRN Peripheral IV Insertion Adult [OM.PC] Stat 01/01/19 08:30 Sodium Chloride 0.9% [Normal Saline] 1,000 ml IV .BOLUS 01/01/19 11:03 EKG Documentation Completion [RC] ASDIRECTED EKG 12 Lead [EK] Stat - Assessment/Plan Last 24 Hours: My Active Orders 01/01/19 08:27 Cardiac Monitoring [RC] . DIRECTED EKG Documentation Completion [RC] STAT Peripheral IV Care [RC] . DIRECTED Sodium Chloride 0.9% [Saline Flush] 10 ml FLUSH ASDIRECTED PRN Peripheral IV Insertion Adult [OM.PC] Stat 01/01/19 08:30 Sodium Chloride 0.9% [Normal Saline] 1,000 ml IV .BOLUS 01/01/19 11:03 EKG Documentation Completion [RC] ASDIRECTED EKG 12 Lead [EK] Stat
[2019-01-01 12:45] VITALS: BP 121/54
== END 2019-01-01 12:41 | disposition home or self-care (01) ==
LOC: JD.ED 08:17
DX: I95.9 Hypotension, unspecified (principal); I10 Essential (primary) hypertension; K21.9 Gastro-esophageal reflux disease without esophagitis; F31.9 Bipolar disorder, unspecified; Z79.82 Long term (current) use of aspirin; Z79.899 Other long term (current) drug therapy; Z91.040 Latex allergy status; Z88.1 Allergy status to other antibiotic agents; Z88.2 Allergy status to sulfonamides; Z88.8 Allergy status to other drugs, medicaments and biological substances; Z88.5 Allergy status to narcotic agent
CPT/HCPCS: 36415; 71045; 80053; 84484; 85025; 93005; 96360; 99285; A9270; J7040; 93010; 99284

== ENCOUNTER 2019-01-22 06:04 | Day surgery (SDC) | payer MEDICARE, BC ==
--- NOTE | 2019-01-21 09:24 | PCM.PREANE ---
Preanesthetic Assessment - Anesthesia/Transfusion/Family Hx Anesthesia History: Prior Anesthesia Reaction Type of Anesthesia Reaction: Excessive Nausea/Vomiting Family History of Anesthesia Reaction: No Transfusion History: No Prior Transfusion(s) Intubation History: Unknown - Review of Systems General: No Symptoms Pulmonary: No Symptoms (COPD-(asthma component)-last inhaler was last week.) Cardiovascular: No Symptoms (HTN, history of MV prolapse), Dyspnea on Exertion Gastrointestinal: No Symptoms (GERD), Decreased Appetite Neurological: No Symptoms, Headache (History of migraines) Other: Reports: Sinus Problem (allergic rhinitis), Depression (History of bipolar disorder), Anxiety - Physical Assessment NPO Status Date: 01/21/19 NPO Status Time: 20:30 Pulse: 76 O2 Sat by Pulse Oximetry: 96 Respiratory Rate: 16 Blood Pressure: 112/58 Temperature: 36.2 C Height: 1.55 m Weight: 53.07 kg ASA Class: 2 Mental Status: Alert & Oriented x3 Airway Class: Mallampati = 2 Dentition: Reports: Normal Dentition, Caries Thyro-Mental Finger Breadths: 3 Mouth Opening Finger Breadths: 3 ROM/Head Extension: Full Lungs: Clear to Auscultation, Normal Respiratory Effort Cardiovascular: Regular Rate, Regular Rhythm, Murmurs - Lab Values: MRSA negative. All labs reviewed and noted and within acceptable ranges to proceed with scheduled procedure. - Imaging/EKG Impressions: EKG: SR rate=99, old Anterior infarct Cardiolyte Stress Test: negative CXR: negative/scoliosis noted Echocardiogram: EF=60-65% - Allergies Allergies/Adverse Reactions: Allergies Allergy/AdvReac Type Severity Reaction Status Date / Time abiraterone [From Zytiga] Allergy Cannot Verified 01/21/19 14:34 Remember alendronate sodium Allergy Joint Pain Verified 01/21/19 14:34 [From Fosamax] codeine Allergy Rash Verified 01/21/19 14:34 guaifenesin [From Entex LA] Allergy Rash Verified 01/21/19 14:34 levofloxacin [From Levaquin] Allergy Cannot Verified 01/21/19 14:34 Remember lisinopril Allergy Cannot Verified 01/21/19 14:34 Remember losartan Allergy Cannot Verified 01/21/19 14:34 Remember phenylephrine HCl Allergy Rash Verified 01/21/19 14:34 [From Entex LA] phenylpropanolamine HCl Allergy Rash Verified 01/21/19 14:34 [From Entex LA] potassium Allergy Cannot Verified 01/21/19 14:34 Remember Sulfa (Sulfonamide Allergy Cannot Verified 01/21/19 14:34 Antibiotics) Remember montelukast sodium AdvReac Drowsiness Verified 01/21/19 14:34 [From Singulair] tetracycline [Tetracycline] AdvReac Nausea and Verified 01/21/19 14:34 Vomiting - Anesthesia Plan Beta Adalberto: Other (Toprol) Med Last Dose Date: 01/22/19 Med Last Dose Time: 05:00 - Acknowledgements Anesthesia Type Planned: Spinal (And left adductor canal block under US guidance for post operative pain control requested by Dr. Johnson.) Pt an Appropriate Candidate for the Planned Anesthesia: Yes Alternatives and Risks of Anesthesia Discussed w Pt/Guardian: Yes Pt/Guardian Understands and Agrees with Anesthesia Plan: Yes PreAnesthesia Questionnaire HEENT History: Reports: Allergic Rhinitis, Impaired Vision, Sinusitis, Other ( See Below) Other HEENT History: eustachian tybe dysfunction, bilateral serous otitis media , dental abcess Cardiovascular History: Reports: Heart Murmur, Hypertension, Other (See Below) Other Cardiovascular History: mitral valve prolapse, patent ductous arteriosis repair at 5 years old Respiratory History: Reports: Asthma, Bronchitis, Recurrent Gastrointestinal History: Reports: GERD TRANSMISSION WORKER History: Reports: Other (See Below) Other OB/BYN History: candidal vagintits, menopausal, breast microcalcifications , hot flashes, tubal Musculoskeletal History: Reports: Other (See Below) Other Musculoskeletal History: hammertoe, sicatica, left shoulder pain Neurological History: Reports: Migraines, Other (See Below) Other Neuro History: trigeminal neuralgia Psychiatric History: Reports: Bipolar Endocrine/Metabolic History: Reports: Other (See Below) Other Endocrine/Metabolic History: vitamin b12 deficiency Hematologic History: Reports: Anemia Immunologic History: Reports: None Oncologic (Cancer) History: Reports: Basal Cell Carcinoma Dermatologic History: Reports: Other (See Below) Other Dermatologic History: bCC - Past Surgical History Head Surgeries/Procedures: Reports: None HEENT Surgical History: Reports: Myringotomy w Tube(s), Naso-Sinus Surgery, Tonsillectomy Cardiovascular Surgical History: Reports: None Respiratory Surgical History: Reports: None Female Surgical History: Reports: Hysterectomy, Oophorectomy, Tubal Ligation Neurological Surgical History: Reports: None Musculoskeletal Surgical History: Reports: Shoulder Surgery Oncologic Surgical History: Reports: None - HOME MEDS Home Medications: Home Meds Estradiol 0.5 mg PO DAILY 08/02/14 [History] carBAMazepine [TEGretol] 100 mg PO BEDTIME 08/02/14 [History] risperiDONE [Risperdal] 3 mg PO BEDTIME 08/02/14 [History] Nitroglycerin 0.4 mg SL ONETIME PRN #1 tab.subl 08/03/14 [Rx] Albuterol Sulfate 1 dose INH Q6H PRN 11/03/14 [History] Albuterol [Proair HFA] 2 puff INH Q4H PRN 11/03/14 [History] Cetirizine [ZyrTEC] 10 mg PO BEDTIME 11/03/14 [History] Fluticasone Propionate [Flonase] 2 spray KENNEY BID 11/03/14 [History] Rizatriptan Benzoate [Rizatriptan] 10 mg PO Q2H PRN 11/03/14 [History] guaiFENesin [Mucinex] 600 mg PO BID PRN 11/03/14 [History] Cholecalciferol (Vitamin D3) [Vitamin D3] 5,000 unit PO DAILY 05/16/18 [History] Olmesartan [Benicar] 10 mg PO DAILY 05/16/18 [History] Aspirin 81 mg PO DAILY 01/21/19 [History] Calcium Carbonate [Calcium] 500 mg PO BID 01/21/19 [History] Cyanocobalamin (Vitamin B-12) [Vitamin B-12] 1,000 mcg PO Q30D 01/21/19 [History ] Famotidine [Pepcid] 20 mg PO DAILY 01/21/19 [History] Metoprolol Succinate [Toprol Xl] 12.5 mg PO DAILY 01/21/19 [History] - CURRENT (IN HOUSE) MEDS Current Meds: Current Medications Lactated Ringer's (Ringers, Lactated) 1,000 mls @ 125 mls/hr IV ASDIRECTED IDANIA Stop: 01/22/19 23:00 Lidocaine/Sodium Bicarbonate (Buffered Lidocaine 1% In Ns 8.4%) 0.25 ml IDERM ONETIME PRN PRN Reason: Prior to IV Start Stop: 01/22/19 23:00 Sodium Chloride (Saline Flush) 10 ml FLUSH ASDIRECTED PRN PRN Reason: Keep Vein Open Stop: 01/22/19 23:00
[~2019-01-22 06:04] MED LIST changes: -Acetaminophen 325 MG Tab PO SCH; +Bupivacaine 0.75% 30 ML SDV ONE; +EPINEPHrine 1 MG/ML SDV ONE; +Ketorolac 30 MG/ML SDV ONE; +Lactated Ringers 1,000 ML ONE; +Lidocaine 1% PF 2 ML SDV ONE; +Ondansetron 4 MG/2 ML SDV ONE; -Pregabalin 25 MG Cap PO SCH; +Propofol 200 MG/20 ML SDV ONE; +Ropivacaine 0.5% 5 MG/ML 30 ML SDV ONE; +Scopolamine 1.5 MG Transdermal Patch TRDERM SCH; +ePHEDrine/Normal Saline 25 MG/5 ML Syringe ONE; +fentaNYL 100 MCG/2 ML SDV ONE; -oxyCODONE ER 10 MG TAB.ER PO SCH
[2019-01-22] MEDS ORDERED: Ketamine 500 mg/10 ML MDV ONE (06:05)
[2019-01-22] MEDS ORDERED: Midazolam 1 MG/ML 2 ML SDV ONE (06:05)
[2019-01-22] MEDS ORDERED: ceFAZolin 1 GM Vial ONE (06:28)
[2019-01-22] MEDS ORDERED: Ondansetron 4 MG/2 ML SDV IVPUSH PRN ×2 (06:32→07:25)
[2019-01-22] MEDS ORDERED: oxyCODONE 5 MG Tab PO PRN (06:32)
[2019-01-22] MEDS ORDERED: Naloxone 0.4 MG/ML SDV IVPUSH PRN (06:32)
[2019-01-22] MEDS ORDERED: Morphine 2 MG/ML Syringe IVPUSH PRN (06:32)
[2019-01-22] MEDS ORDERED: Bisacodyl 5 MG Tab PO PRN (06:32)
[2019-01-22] MEDS ORDERED: Sennosides 8.6 MG Tab PO PRN (06:32)
[2019-01-22] MEDS ORDERED: diphenhydrAMINE 50 MG/ML SDV IVPUSH PRN (07:25)
[2019-01-22] MEDS ORDERED: fentaNYL 100 MCG/2 ML SDV IVPUSH PRN (07:25)
[2019-01-22] MEDS ORDERED: ePHEDrine 50 MG/ML SDV IVPUSH PRN (07:25)
[2019-01-22] MEDS ORDERED: HYDROmorphone 0.5 MG/0.5 ML Syringe IVPUSH PRN (07:25)
[2019-01-22] MEDS: Iodine/Sodium Iodide 2% Tincture 30 ML Bottle ONE ×2 (07:56→08:16)
[2019-01-22] MEDS: Bupivacaine 0.25% 30 ML SDV ONE ×2 (07:57→08:24)
[2019-01-22] MEDS: ceFAZolin 1 GM Vial ONE ×2 (07:57→08:19)
[2019-01-22] MEDS: Morphine 8 MG, EPINEPHrine 0.3 MG, Cefuroxime 750 MG, Ketorolac 30 MG, Sodium Chloride ... ONE ×10 (07:58→08:24)
[2019-01-22] MEDS: Vancomycin 1 GM SDV ONE ×2 (07:59→08:26)
[2019-01-22] MEDS ORDERED: Phenylephrine/Normal Saline 100 MCG/ML 10 ML Syringe ONE (08:13)
[2019-01-22] MEDS ORDERED: Lactated Ringers 1,000 ML ONE (08:39)
--- NOTE | 2019-01-22 09:01 | PCM.POSTAN ---
POST ANESTHESIA ASSESSMENT - MENTAL STATUS Mental Status: Alert - VITAL SIGNS Pulse Rate: 85 SaO2: 93 Resp Rate: 12 Blood Pressure: 106/50 Temperature: 36.4 C - RESPIRATORY Respiratory Status: Respiratory Rate WNL, Airway Patent, O2 Saturation Stable - CARDIOVASCULAR CV Status: Pulse Rate WNL, Blood Pressure Stable - GASTROINTESTINAL GI Status: No Symptoms - POST OP HYDRATION Hydration Status: Adequate & Stable
--- NOTE | 2019-01-22 09:19 | PCM.SN ---
- Free Text/Narrative Note: Left selective femoral nerve block at the adductor canal for post-procedure pain control under US guidance requested by Dr. Johnson. Time Out: 902 Start: 902 End: 910 Chart reviewed. Consent signed. Questions answered. Appropriate monitors applied. Time out performed. Left mid-shaft femur identified with ultrasound, scanning medially of femur, the femoral artery in the adductor canal visualized , and the femoral nerve located laterally to the artery. The skin was prepped lateral to the ultrasound probe with chlorahexadine times two. The 21ga 4 insulated block needle was inserted under direct ultrasound guidance into the adductor canal. 23mL of 0.5% ropivacaine with 1:200,000 epinephrine was injected circumferentially around the nerve with intermittent negative aspiration noted. Patient tolerated the procedure well. Sterile technique noted along with sterile gloves, mask, and sterile probe cover. See picture on progress note and vital signs on nurses notes. Block completed in PACU. JAYJAY Mckeon
[2019-01-22] MEDS ORDERED: Albuterol 6.7 GM Inhaler INH PRN (09:28)
[2019-01-22] MEDS ORDERED: Albuterol 0.042% 1.25 MG/3 ML Neb Soln INH PRN (09:28)
[2019-01-22] MEDS ORDERED: Non-Formulary Medication 1 Each (Cyanocobalamin (Vitamin B-12) [Vitamin B-12] 1,000 MCG) PO SCH (09:30)
--- NOTE | 2019-01-22 09:39 | CR ---
Left knee: AP and lateral views of the left knee were obtained. Comparison: No prior left knee exam. Knee prosthesis is noted. Components are aligned. Soft tissue air is noted from the surgical procedure. Underlying bony structures are intact. Impression: 1. Satisfactory radiographic appearance of recently placed left knee prosthesis. Diagnostic code #2
[2019-01-22] MEDS ORDERED: Nitroglycerin 0.4 MG Tab.SL SL PRN (10:09)
[2019-01-22] MEDS ORDERED: guaiFENesin 600 MG Tab.ER PO PRN (12:00)
[2019-01-22] MEDS: traMADol 50 MG Tab PO PRN ×3 (12:41→22:27)
[2019-01-22] MEDS: Ketorolac 15 MG/ML SDV IVPUSH PRN (12:43)
[2019-01-22] MEDS: ceFAZolin 2 GM in Premix Bag 1 BAG IV SCH ×2 (14:19→22:28)
[2019-01-22] MEDS: Calcium Carbonate 600 MG Tab PO SCH (20:44)
[2019-01-22] MEDS: Docusate Sodium 100 MG Cap PO SCH (20:44)
[2019-01-22] MEDS ORDERED: carBAMazepine 100 MG Tab.Chew PO SCH (21:00)
[2019-01-22] MEDS ORDERED: Loratadine 10 MG Tab PO SCH (21:00)
[2019-01-22] MEDS ORDERED: risperiDONE 1 MG Tab PO SCH (21:00)
[2019-01-22] MEDS ORDERED: CARBAMAZEPINE 400 MG PO SCH (21:15)
[2019-01-23] MEDS: Ketorolac 15 MG/ML SDV IVPUSH PRN (05:50)
[2019-01-23] MEDS: traMADol 50 MG Tab PO PRN (05:54)
[2019-01-23] MEDS: ceFAZolin 2 GM in Premix Bag 1 BAG IV SCH (06:00)
--- NOTE | 2019-01-23 08:28 | PCM.SURGPN ---
- General Info Date of Service: 01/23/19 POD#: 1 Functional Status: Reports: Pain Controlled, Tolerating Diet, Ambulating, Urinating, Incentive Spirometry, Other (The pt states her pain is controlled with use of Ultram.) - Patient Data Vitals - Most Recent: Last Vital Signs Temp 98.8 F 01/23/19 05:32 Pulse 84 01/23/19 05:32 Resp 16 01/23/19 05:32 BP 118/55 L 01/23/19 05:32 Pulse Ox 90 L 01/23/19 05:32 Weight - Most Recent: 117 lb I&O - Last 24 Hours: Intake & Output 01/22/19 01/23/19 01/23/19 22:59 06:59 14:59 Intake Total 360 400 Balance 360 400 Lab Results Last 24 Hrs: Laboratory Results - last 24 hr 01/23/19 01/23/19 Range/Units 06:50 06:50 WBC 9.67 (3.98-10.04) K/mm3 RBC 3.43 L (3.98-5.22) M/mm3 Hgb 11.0 L (11.2-15.7) gm/L Hct 32.6 L (34.1-44.9) % MCV 95.0 H (79.4-94.8) fl MCH 32.1 (25.6-32.2) pg MCHC 33.7 (32.2-35.5) g/dl RDW Std Deviation 43.5 (36.4-46.3) fL Plt Count 257 (182-369) K/mm3 MPV 8.7 L (9.4-12.3) fl Sodium 131 L (136-145) mEq/L Potassium 4.2 (3.5-5.1) mEq/L Chloride 98 (98-107) mEq/L Carbon Dioxide 25 (21-32) mEq/L Anion Gap 12.2 (5-15) BUN 8 (7-18) mg/dL Creatinine 0.8 (0.55-1.02) mg/dL Est Cr Clr Drug Dosing 52.20 mL/min Estimated GFR (MDRD) > 60 (>60) mL/min BUN/Creatinine Ratio 10.0 L (14-18) Glucose 129 H (80-115) mg/dL Calcium 8.7 (8.5-10.1) mg/dL Total Bilirubin 0.3 (0.2-1.0) mg/dL AST 17 (15-37) U/L ALT 18 (14-59) U/L Alkaline Phosphatase 65 (46-116) U/L Total Protein 5.8 L (6.4-8.2) g/dl Albumin 2.9 L (3.4-5.0) g/dl Globulin 2.9 gm/dL Albumin/Globulin Ratio 1.0 (1-2) Med Orders - Current: Current Medications Albuterol (Proventil Hfa) 0 gm INH Q4H PRN PRN Reason: Shortness of Breath Albuterol (Proventil Neb Soln) 1.25 mg INH Q6H PRN PRN Reason: Shortness of Breath Aspirin (Ecotrin) 325 mg PO BID [facility] Bisacodyl (Dulcolax) 5 mg PO DAILY PRN PRN Reason: Constipation Calcium Carbonate/Glycine (Calcium Carbonate) 600 mg PO BID [facility] Last Admin: 01/22/19 20:44 Dose: 600 mg Carbamazepine (Tegretol) 100 mg PO BEDTIME [facility] Last Admin: 01/22/19 20:44 Dose: 100 mg Celecoxib (Celebrex) 200 mg PO DAILY PRN PRN Reason: Pain Cholecalciferol (Vitamin D3) 5,000 unit PO DAILY [facility] Docusate Sodium (Colace) 100 mg PO BID [facility] Last Admin: 01/22/19 20:44 Dose: 100 mg Estradiol (Estradiol) 0.5 mg PO BEDTIME [facility] Famotidine (Pepcid) 20 mg PO BEDTIME [facility] Flunisolide (Nasalide Nasal [place]) 0 ml KENNEY BID [facility] Guaifenesin (Mucinex) 600 mg PO BID PRN PRN Reason: cough/cold Ketorolac Tromethamine (Toradol) 15 mg IVPUSH Q6H PRN PRN Reason: Pain Last Admin: 01/23/19 05:50 Dose: 15 mg Loratadine (Claritin) 10 mg PO BEDTIME [facility] Last Admin: 01/22/19 20:44 Dose: 10 mg Metoprolol Succinate (Toprol Xl) 12.5 mg PO DAILY [facility] Miscellaneous Information (Remove Patch) 0 ea TRDERM ONETIME ONE Stop: 01/25/19 07:01 Morphine Sulfate (Morphine) 2 mg IVPUSH Q2H PRN PRN Reason: Breakthrough Pain Naloxone HCl (Narcan) 0.1 mg IVPUSH Q5M PRN PRN Reason: Oversedation Nitroglycerin (Nitrostat) 0.4 mg SL ONETIME PRN PRN Reason: Chest Pain Carbamazepine 400 Mg (Er TabOwn Med) 400 mg PO BEDTIME [facility] Last Admin: 01/22/19 21:08 Dose: 400 mg Ondansetron HCl (Zofran) 4 mg IVPUSH Q6H PRN PRN Reason: Nausea/Vomiting Oxycodone HCl (Oxycodone) 5 mg PO Q4H PRN PRN Reason: Pain Olmesartan 10 Mg 0 each PO DAILY [facility] Rizatriptan Benzoate (10 Mg) 0 each PO Q2H PRN PRN Reason: Headache Risperidone (Risperidal) 3 mg PO BEDTIME [facility] Last Admin: 01/22/19 20:44 Dose: 3 mg Senna (Senna) 8.6 mg PO BID PRN PRN Reason: Constipation Tramadol HCl (Ultram) 50 - 100 mg PO Q4H PRN PRN Reason: Pain Last Admin: 01/23/19 05:54 Dose: 100 mg Discontinued Medications Bupivacaine HCl (Sensorcaine-Mpf 0.75%) Confirm Administered Dose 30 ml .ROUTE .STK-MED ONE Stop: 01/22/19 06:05 Bupivacaine HCl (Marcaine 0.25%) Confirm Administered Dose 30 ml .ROUTE .STK- MED ONE Stop: 01/22/19 06:29 Last Admin: 01/22/19 08:24 Dose: 30 ml Cefazolin Sodium (Ancef) Confirm Administered Dose 2 gm .ROUTE .STK-MED ONE Stop: 01/22/19 06:05 Last Admin: 01/22/19 08:19 Dose: 2 gm Cefazolin Sodium (Ancef) Confirm Administered Dose 2 gm .ROUTE .STK-MED ONE Stop: 01/22/19 06:29 Morphine Sulfate 8 mg/Epinephrine HCl 0.3 mg/Cefuroxime Sodium 750 mg/Ketorolac Tromethamine 30 mg/Sodium Chloride 27.9 ml 0 mg .XX ONETIME ONE Stop: 01/22/19 07:31 Last Admin: 01/22/19 08:24 Dose: 788.3 mg Diphenhydramine HCl (Benadryl) 25 mg IVPUSH Q6H PRN PRN Reason: pruritis Stop: 01/22/19 12:00 Ephedrine Sulfate (Ephedrine In Ns) Confirm Administered Dose 25 mg .ROUTE .STK- MED ONE Stop: 01/22/19 06:05 Ephedrine Sulfate (Ephedrine Sulfate) 5 mg IVPUSH ASDIRECTED PRN PRN Reason: Hypotension Stop: 01/22/19 12:00 Epinephrine HCl (Adrenalin) Confirm Administered Dose 1 mg .ROUTE .STK-MED ONE Stop: 01/22/19 05:50 Fentanyl (Sublimaze) Confirm Administered Dose 100 mcg .ROUTE .STK-MED ONE Stop: 01/22/19 06:05 Fentanyl (Sublimaze) 50 mcg IVPUSH Q5M PRN PRN Reason: Pain Stop: 01/22/19 12:00 Hydromorphone HCl (Dilaudid) 0.5 mg IVPUSH Q15M PRN PRN Reason: Pain (severe 7-10) Stop: 01/22/19 12:00 Lactated Ringer's (Ringers, Lactated) 1,000 mls @ 125 mls/hr IV ASDIRECTED [facility] Stop: 01/22/19 23:00 Last Admin: 01/22/19 06:36 Dose: 125 mls/hr Lactated Ringer's (Ringers, Lactated) Confirm Administered Dose 1,000 mls @ as directed .ROUTE .STK-MED ONE Stop: 01/22/19 06:05 Cefazolin Sodium/Dextrose 2 gm (/ Premix) 50 mls @ 100 mls/hr IV Q8H [facility] Stop: 01/23/19 07:29 Last Admin: 01/23/19 06:00 Dose: 100 mls/hr Lactated Ringer's (Ringers, Lactated) Confirm Administered Dose 1,000 mls @ as directed .ROUTE .STK-MED ONE Stop: 01/22/19 08:40 Iodine (Iodine 2% Mild Tincture) Confirm Administered Dose 30 ml .ROUTE .STK- MED ONE Stop: 01/22/19 06:29 Last Admin: 01/22/19 08:16 Dose: 18 ml Ketamine HCl (Ketalar) Confirm Administered Dose 500 mg .ROUTE .STK-MED ONE Stop: 01/22/19 06:06 Ketorolac Tromethamine (Toradol) Confirm Administered Dose 30 mg .ROUTE .STK- MED ONE Stop: 01/22/19 06:05 Lidocaine HCl (Xylocaine-Mpf 1%) Confirm Administered Dose 14 ml .ROUTE .STK- MED ONE Stop: 01/22/19 06:05 Lidocaine/Sodium Bicarbonate (Buffered Lidocaine 1% In Ns 8.4%) 0.25 ml IDERM ONETIME PRN PRN Reason: Prior to IV Start Stop: 01/22/19 23:00 Last Admin: 01/22/19 06:36 Dose: 0.25 ml Midazolam HCl (Versed 1 Mg/Ml) Confirm Administered Dose 2 mg .ROUTE .STK-MED ONE Stop: 01/22/19 06:06 Non-Formulary Medication (Cyanocobalamin (Vitamin B-12) [Vitamin B-12]) 1,000 mcg PO Q30D [facility] Last Admin: 01/22/19 12:29 Dose: Not Given Ondansetron HCl (Zofran) Confirm Administered Dose 4 mg .ROUTE .STK-MED ONE Stop: 01/22/19 06:05 Ondansetron HCl (Zofran) 4 mg IVPUSH ONETIME PRN PRN Reason: Nausea/Vomiting Stop: 01/22/19 12:00 Phenylephrine HCl (Phenylephrine In Ns 100 Mcg/Ml) Confirm Administered Dose 1 mg .ROUTE .STK-MED ONE Stop: 01/22/19 08:14 Propofol (Diprivan 20 Ml) Confirm Administered Dose 400 mg .ROUTE .STK-MED ONE Stop: 01/22/19 06:05 Ropivacaine (Naropin 0.5%) Confirm Administered Dose 30 ml .ROUTE .STK-MED ONE Stop: 01/22/19 05:50 Scopolamine (Transderm-Scop) 1.5 mg TRDERM ONETIME [facility] Stop: 01/22/19 18:00 Last Admin: 01/22/19 06:35 Dose: 1.5 mg Sodium Chloride (Saline Flush) 10 ml FLUSH ASDIRECTED PRN PRN Reason: Keep Vein Open Stop: 01/22/19 23:00 Tranexamic Acid (Cyklokapron) Confirm Administered Dose 1,000 mg .ROUTE .STK- MED ONE Stop: 01/22/19 06:28 Last Admin: 01/22/19 08:31 Dose: 1,000 mg Vancomycin HCl (Vancomycin) Confirm Administered Dose 1 gm .ROUTE .STK-MED ONE Stop: 01/22/19 06:28 Last Admin: 01/22/19 08:26 Dose: 1 gm - Exam Wound/Incisions: Dressing Dry and Intact General: Alert, Cooperative, No Acute Distress Lungs: Normal Respiratory Effort Extremities: Other (NSV intact for BLE. Corbin's negative.) - Problem List Review Problem List Initiated/Reviewed/Updated: Yes - My Orders Last 24 Hours: Active Orders 24 hr Category Date Time Status Communication Order [RC] ASDIRECTED Care 01/22/19 09:33 Active Communication Order [RC] ROUTINE Care 01/22/19 07:25 Active Cooling Warming Measures [RC] ASDIRECTED Care 01/22/19 07:25 Inactive Oxygen Therapy [RC] ASDIRECTED Care 01/22/19 07:25 Active Pulse Oximetry [RC] ASDIRECTED Care 01/22/19 07:25 Active Ready for Discharge [RC] PER UNIT ROUTINE Care 01/23/19 08:23 Ordered Vital Signs [RC] Q15M Care 01/22/19 07:25 Inactive Regular Diet [DIET] Diet 01/22/19 Lunch Active Albuterol [Proventil HFA] Med 01/22/19 09:28 Active 0 gm INH Q4H PRN Albuterol [Proventil Neb Soln] Med 01/22/19 09:28 Active 1.25 mg INH Q6H PRN Aspirin [Ecotrin] Med 01/23/19 09:00 Active 325 mg PO BID Calcium Carbonate Med 01/22/19 21:00 Active 600 mg PO BID Celecoxib [CeleBREX] Med 01/23/19 09:00 Active 200 mg PO DAILY PRN Cholecalciferol (Vitamin D3) [Vitamin D3] Med 01/23/19 09:00 Active 5,000 unit PO DAILY Docusate Sodium [Colace] Med 01/22/19 21:00 Active 100 mg PO BID Estradiol Med 01/23/19 21:00 Active 0.5 mg PO BEDTIME Famotidine [Pepcid] Med 01/23/19 21:00 Active 20 mg PO BEDTIME Flunisolide [Nasalide Nasal [place]] Med 01/22/19 21:00 Pending 0 ml KENNEY BID Ketorolac [Toradol] Med 01/22/19 09:00 Active 15 mg IVPUSH Q6H PRN Loratadine [Claritin] Med 01/22/19 21:00 Active 10 mg PO BEDTIME Metoprolol Succinate [Toprol XL] Med 01/23/19 09:00 Active 12.5 mg PO DAILY Nitroglycerin [Nitrostat] Med 01/22/19 10:09 Active 0.4 mg SL ONETIME PRN Patient's Own Medication [Ptom] Med 01/23/19 09:00 Active 0 each PO DAILY Patient's Own Medication [Ptom] Med 01/22/19 09:28 Active 0 each PO Q2H PRN Remove Patch Med 01/25/19 07:00 Once 0 ea TRDERM ONETIME ONE carBAMazepine Med 01/22/19 21:15 Active 400 mg PO BEDTIME carBAMazepine [TEGretol] Med 01/22/19 21:00 Active 100 mg PO BEDTIME guaiFENesin [Mucinex] Med 01/22/19 12:00 Active 600 mg PO BID PRN risperiDONE [RisperiDAL] Med 01/22/19 21:00 Active 3 mg PO BEDTIME Medication Orders Albuterol (Proventil Hfa) 0 gm INH Q4H PRN PRN Reason: Shortness of Breath Albuterol (Proventil Neb Soln) 1.25 mg INH Q6H PRN PRN Reason: Shortness of Breath Aspirin (Ecotrin) 325 mg PO BID [facility] Bisacodyl (Dulcolax) 5 mg PO DAILY PRN PRN Reason: Constipation Calcium Carbonate/Glycine (Calcium Carbonate) 600 mg PO BID [facility] Last Admin: 01/22/19 20:44 Dose: 600 mg Carbamazepine (Tegretol) 100 mg PO BEDTIME [facility] Last Admin: 01/22/19 20:44 Dose: 100 mg Celecoxib (Celebrex) 200 mg PO DAILY PRN PRN Reason: Pain Cholecalciferol (Vitamin D3) 5,000 unit PO DAILY [facility] Docusate Sodium (Colace) 100 mg PO BID [facility] Last Admin: 01/22/19 20:44 Dose: 100 mg Estradiol (Estradiol) 0.5 mg PO BEDTIME [facility] Famotidine (Pepcid) 20 mg PO BEDTIME [facility] Flunisolide (Nasalide Nasal [place]) 0 ml KENNEY BID [facility] Guaifenesin (Mucinex) 600 mg PO BID PRN PRN Reason: cough/cold Ketorolac Tromethamine (Toradol) 15 mg IVPUSH Q6H PRN PRN Reason: Pain Last Admin: 01/23/19 05:50 Dose: 15 mg Admin: 01/22/19 12:43 Dose: 15 mg Loratadine (Claritin) 10 mg PO BEDTIME [facility] Last Admin: 01/22/19 20:44 Dose: 10 mg Metoprolol Succinate (Toprol Xl) 12.5 mg PO DAILY [facility] Miscellaneous Information (Remove Patch) 0 ea TRDERM ONETIME ONE Stop: 01/25/19 07:01 Morphine Sulfate (Morphine) 2 mg IVPUSH Q2H PRN PRN Reason: Breakthrough Pain Naloxone HCl (Narcan) 0.1 mg IVPUSH Q5M PRN PRN Reason: Oversedation Nitroglycerin (Nitrostat) 0.4 mg SL ONETIME PRN PRN Reason: Chest Pain Carbamazepine 400 Mg (Er TabOwn Med) 400 mg PO BEDTIME [facility] Last Admin: 01/22/19 21:08 Dose: 400 mg Ondansetron HCl (Zofran) 4 mg IVPUSH Q6H PRN PRN Reason: Nausea/Vomiting Oxycodone HCl (Oxycodone) 5 mg PO Q4H PRN PRN Reason: Pain Olmesartan 10 Mg 0 each PO DAILY [facility] Rizatriptan Benzoate (10 Mg) 0 each PO Q2H PRN PRN Reason: Headache Risperidone (Risperidal) 3 mg PO BEDTIME [facility] Last Admin: 01/22/19 20:44 Dose: 3 mg Senna (Senna) 8.6 mg PO BID PRN PRN Reason: Constipation Tramadol HCl (Ultram) 50 - 100 mg PO Q4H PRN PRN Reason: Pain Last Admin: 01/23/19 05:54 Dose: 100 mg Admin: 01/22/19 22:27 Dose: 100 mg Admin: 01/22/19 17:37 Dose: 100 mg Admin: 01/22/19 12:41 Dose: 100 mg - Assessment Assessment (Free Text/Narrative):: POD#1 - left TKA - Plan Plan (Free Text/Narrative):: 1. Hgb 11.0. 2. 325mg ASA PO BID, frequent mobility, TEDs. 3. Discharge to home today. 4. Hx hyponatremia and stable labs noted. The pt's case was discussed with Dr. Johnson.
[2019-01-23] MEDS ORDERED: OLMESARTAN 10 MG PO SCH (09:00)
[2019-01-23] MEDS ORDERED: Metoprolol Succinate 25 MG Tab.ER PO SCH (09:00)
[2019-01-23] MEDS ORDERED: Celecoxib 100 MG Cap PO PRN (09:00)
[2019-01-23] MEDS ORDERED: Aspirin 325 MG Tab.EC PO SCH (09:00)
[2019-01-23] MEDS ORDERED: Cholecalciferol (Vitamin D3) 5,000 UNIT Tab PO SCH (09:00)
--- NOTE | 2019-01-23 09:30 | PCM48HPAN ---
Post Anesthesia Note - EVALUATION WITHIN 48HRS OF ANESTHETIC Vital Signs in Normal Range: Yes Patient Participated in Evaluation: Yes Respiratory Function Stable: Yes Airway Patent: Yes Cardiovascular Function Stable: Yes Hydration Status Stable: Yes Pain Control Satisfactory: Yes Nausea and Vomiting Control Satisfactory: Yes Mental Status Recovered: Yes
[2019-01-23] MEDS: Calcium Carbonate 600 MG Tab PO SCH (10:26)
[2019-01-23] MEDS: Docusate Sodium 100 MG Cap PO SCH (10:32)
[2019-01-23 13:28] VITALS: BP 126/68
[2019-01-23] MEDS ORDERED: Famotidine 20 MG Tab PO SCH (21:00)
[2019-01-23] MEDS ORDERED: Estradiol 0.5 MG Tab PO SCH (21:00)
--- NOTE | 2019-01-26 12:26 | PCM.OPNOTE ---
- General Post-Op/Procedure Note Date of Surgery/Procedure: 01/22/19 Operative Procedure(s): left total knee arthroplasty Pre Op Diagnosis: left knee osteoarthrosis Post-Op Diagnosis: Same Anesthesia Technique: Local, MAC, Spinal Primary Surgeon: Zahc Johnson Anesthesia Provider: Ofelia Hernández Sleeve Sewer: Hilary Dixon Sleeve Sewer: Holly Vasquez in mLs: 5 Complications: None Condition: Good Free Text/Narrative:: cemented size 3 femur size 2 tibia 9mm 29x9
--- NOTE | 2019-01-26 13:26 | OR ---
DATE OF OPERATION: 01/22/2019 SURGEON: Zach Johnson MD OPERATION PERFORMED: Left total knee arthroplasty. PREOPERATIVE DIAGNOSIS: Left knee osteoarthrosis. POSTOPERATIVE DIAGNOSIS: Left knee osteoarthrosis. ANESTHESIA: Local MAC with spinal. ANESTHESIA PROVIDER: Ofelia Hernández CRNA. WIRE BASKET MAKER: Holly Vasquez LPN. ESTIMATED BLOOD LOSS: 5 mL. COMPLICATIONS: None. CONDITION: Stable. IMPLANTS: 1. Heather size 3 cemented PS femur. 2. Heather size 2 cemented universal tibial base plate. 3. Heather size 2, 9 mm PS X3 polyethylene. 4. Heather size 29 x 9 mm cemented asymmetric patella. DESCRIPTION OF PROCEDURE: The patient was identified in the preop holding area. Proper site was marked and identified by the surgeon. The patient was taken back to the operating theater. After adequate anesthesia, the patient's left lower extremity had a nonsterile tourniquet applied and it was sterilely prepped and draped in the usual sterile fashion. OR time-out was performed. The patient received 2 g IV Ancef. At this time, the left lower extremity was exsanguinated. Tourniquet was insufflated to 300 mmHg. Standard medial parapatellar incision was made. Medial parapatellar arthrotomy was created. Deep fibers of the MCL were raised and anterior fat pad was resected. At this time, attention was turned to the patella. Patella measured 21, it was resected to a 13 for 29 x 9 mm patella. Drill holes were then drilled and found to be in adequate position. The drill was then drilled in the distal femur and the intramedullary distal femoral cutting guide was then placed. An 8 mm was resected off the distal femur and was found to be an adequate resection. Sizing guide was placed. It was found to be a size press-fit CR femur that was shown on the implant record at the beginning of this dictation. The drill holes were drilled for the epicondylar axis using [place]ites[place] line and epicondyles as reference. At this time, the 4-in- 1 cutting block was placed. An anterior posterior and anterior and posterior chamfer cuts were then completed. Attention was turned to the tibia. The posterior medial lateral retractors were placed. The extramedullary tibial guide was placed. It was placed in the old footprint of the ACL. It was aligned with the center of the ankle and 0 degrees of slope, 9 mm was then resected off the unaffected side. There was found to be an acceptable reduction. At this time, posterior osteophytes were removed along with medial and lateral meniscus. A trial implant was placed with a correct sized tibia that was mentioned at the beginning of the dictation. A [place] size 2, 9 mm PS X3 polyethylene insert was then placed. The patient's knee was brought through range of motion. The patella was tracking centrally and was stable to varus and valgus stress. Alignment was found to be roughly at 0 degrees. The tibia was stamped and drilled in proper rotation. The universal tibial base plate was impacted in place. Next, the Heather size 3 cemented PS femur impacted into place and the [place] size 2, 9 mm PS X3 polyethylene insert was placed. The patient's knee was brought into full extension. The patella was then press-fit in place at this time. Tourniquet was deflated. One liter dilute Betadine solution was irrigated through the knee along with 3 L of pulse lavage irrigation with Ancef. Periarticular injection was then completed. The patient's knee was brought through a range of motion. Once the cement had time to set up and it was found to be stable to varus valgus stress, the patella was tracking centrally with full range of motion. At this time, a #2 barbed suture was used for closure of the medial parapatellar arthrotomy. Topical tranexamic acid was placed. 2-0 Vicryl was used subcutaneously, Prineo was used for the skin. The patient tolerated the procedure well and was sent to the PACU in stable condition. DORIS /[id number]
== END 2019-01-23 12:25 | disposition home or self-care (01) ==
LOC: JD.SDS 06:04 → JD.MS 06:08 → JD.SDS 01-23 12:25
PROVIDERS: ATTEND Orthopaedic Surgery
DX: M17.12 Unilateral primary osteoarthritis, left knee (principal); I10 Essential (primary) hypertension; I44.7 Left bundle-branch block, unspecified; J44.9 Chronic obstructive pulmonary disease, unspecified; K21.9 Gastro-esophageal reflux disease without esophagitis; F31.9 Bipolar disorder, unspecified; F41.9 Anxiety disorder, unspecified; G89.18 Other acute postprocedural pain; Z88.1 Allergy status to other antibiotic agents; Z88.2 Allergy status to sulfonamides; Z88.5 Allergy status to narcotic agent; Z88.8 Allergy status to other drugs, medicaments and biological substances; Z91.040 Latex allergy status; Z79.82 Long term (current) use of aspirin; Z79.899 Other long term (current) drug therapy
CPT/HCPCS: 27447; 36415; 64447; 73560; 80053; 85027; 97110; 97116; 97161; 97166; 97535; A9270; C1713; C1776; J0171; J0690; J0697; J1885; J2001; J2250; J2270; J2370; J2405; J2704; J2795; J3010; J3370; J3490; J7050; J7120

== ENCOUNTER 2020-12-03 10:22 | Emergency (ER) | payer MEDICARE, BC ==
[2020-12-03] MEDS ORDERED: Sodium Chloride 0.9% 10 ML Syringe FLUSH SCH (11:15)
[2020-12-03] MEDS ORDERED: methylPREDNISolone Sodium Succinate 125 MG/2 ML SDV IVPUSH PRN (11:15)
[2020-12-03] MEDS ORDERED: EPINEPHrine 1 MG/ML SDV IM ONE (11:15)
[2020-12-03] MEDS ORDERED: Famotidine 20 MG/2 ML SDV IVPUSH PRN (11:15)
[2020-12-03] MEDS ORDERED: diphenhydrAMINE 50 MG/ML SDV IVPUSH PRN (11:15)
[2020-12-03] MEDS ORDERED: Sodium Chloride 0.9% 1,000 ML IV ONE (11:24)
[2020-12-03] MEDS ORDERED: Ondansetron 4 MG/2 ML SDV IVPUSH ONE (11:24)
[2020-12-03] MEDS ORDERED: Dexamethasone 10 MG/ML SDV IVPUSH ONE (11:28)
--- NOTE | 2020-12-03 11:33 | EDM.PDOC ---
ED HPI GENERAL MEDICAL PROBLEM - General Chief Complaint: Respiratory Problem Stated Complaint: COVID +/SOB Time Seen by Provider: 12/03/20 11:15 Source of Information: Reports: Patient, RN Notes Reviewed History Limitations: Reports: No Limitations - History of Present Illness INITIAL COMMENTS - FREE TEXT/NARRATIVE: Patient is a 70-year-old female who presents to the ER for her ongoing COVID-19 disease. Patient states that she began to feel sick on 11/25/2019, but tested positive today. Her primary care provider is Indira Chi from the [facility]. Patient is complaining of shortness of breath, fevers, fatigue, no appetite. She consulted with her primary care provider, and was told to come to the ER for outpatient antibody treatment. Patient's O2 sats are 98% on room air, pulse is 88 bpm, temperature is 98.0 F respiratory rate of 20, blood pressure is 151/70. Patient does have a history of asthma and hypertension, she does not have any other comorbidities like diabetes or obesity. Patient is complaining of some generalized nausea/vomiting/diarrhea as well. Patient notes that Indira Chi did start her on cefdinir, for possible sinus infection yesterday, she just started taking that this morning. - Related Data Allergies Allergy/AdvReac Type Severity Reaction Status Date / Time codeine Allergy Intermediate Rash Verified 12/03/20 11:19 guaifenesin [From Entex LA] Allergy Intermediate Rash Verified 12/03/20 11:19 phenylephrine HCl Allergy Intermediate Rash Verified 12/03/20 11:19 [From Entex LA] phenylpropanolamine HCl Allergy Intermediate Rash Verified 12/03/20 11:19 [From Entex LA] abiraterone [From Zytiga] Allergy Unknown Cannot Verified 12/03/20 11:19 Remember levofloxacin [From Levaquin] Allergy Unknown Cannot Verified 12/03/20 11:19 Remember lisinopril Allergy Unknown Cannot Verified 12/03/20 11:19 Remember losartan Allergy Unknown Cannot Verified 12/03/20 11:19 Remember potassium Allergy Unknown Cannot Verified 12/03/20 11:19 Remember Sulfa (Sulfonamide Allergy Unknown Cannot Verified 12/03/20 11:19 Antibiotics) Remember alendronate sodium AdvReac Mild Joint Pain Verified 12/03/20 11:19 [From Fosamax] montelukast sodium AdvReac Mild Drowsiness Verified 12/03/20 11:19 [From Singulair] tetracycline [Tetracycline] AdvReac Mild Nausea and Verified 12/03/20 11:19 Vomiting Home Meds: Home Meds estradioL [Estradiol] 0.5 mg PO DAILY 08/02/14 [History] Cetirizine [ZyrTEC] 10 mg PO BEDTIME 11/03/14 [History] Fluticasone Propionate [Flonase] 2 spray KENNEY BID 11/03/14 [History] guaiFENesin [Mucinex] 600 mg PO BID PRN 11/03/14 [History] Cholecalciferol (Vitamin D3) [Vitamin D3] 5,000 unit PO DAILY 05/16/18 [History] Olmesartan [Benicar] 0.5 mg PO DAILY 05/16/18 [History] Calcium Carbonate [Calcium] 500 mg PO BID 01/21/19 [History] Cyanocobalamin (Vitamin B-12) [Vitamin B-12] 1,000 mcg PO Q30D 01/21/19 [History] Famotidine [Pepcid] 20 mg PO DAILY 01/21/19 [History] Metoprolol Succinate [Toprol Xl] 10 mg PO DAILY 01/21/19 [History] Aspirin [Aspirin EC] 81 mg PO DAILY 12/03/20 [History] Cariprazine HCl [Vraylar] 1.5 mg PO DAILY 12/03/20 [History] dexAMETHasone [Decadron] 6 mg PO DAILY 9 Days #9 tablet 12/03/20 [Rx] Past Medical History HEENT History: Reports: Allergic Rhinitis, Impaired Vision, Sinusitis, Other (See Below) Other HEENT History: eustachian tybe dysfunction, bilateral serous otitis media, dental abcess Cardiovascular History: Reports: Heart Murmur, Hypertension, Other (See Below) Other Cardiovascular History: mitral valve prolapse, patent ductous arteriosis repair at 5 years old Respiratory History: Reports: Asthma, Bronchitis, Recurrent Gastrointestinal History: Reports: GERD TECHNICAL SUPPORT SPECIALIST History: Reports: Other (See Below) Other TECHNICAL SUPPORT SPECIALIST History: candidal vagintits, menopausal, breast microcalcifications, hot flashes, tubal Musculoskeletal History: Reports: Other (See Below) Other Musculoskeletal History: hammertoe, sicatica, left shoulder pain Neurological History: Reports: Migraines, Other (See Below) Other Neuro History: trigeminal neuralgia Psychiatric History: Reports: Bipolar Endocrine/Metabolic History: Reports: Other (See Below) Other Endocrine/Metabolic History: vitamin b12 deficiency Hematologic History: Reports: Anemia Oncologic (Cancer) History: Reports: Basal Cell Carcinoma Dermatologic History: Reports: Other (See Below) Other Dermatologic History: bCC - Infectious Disease History Infectious Disease History: Reports: Novel Coronavirus () - Past Surgical History HEENT Surgical History: Reports: Myringotomy w Tube(s), Naso-Sinus Surgery, Tonsillectomy Female Surgical History: Reports: Hysterectomy, Oophorectomy, Tubal Ligation Musculoskeletal Surgical History: Reports: Shoulder Surgery Social & Family History - Tobacco Use Tobacco Use Status *Q: Never Tobacco User - Caffeine Use Caffeine Use: Reports: Tea - Recreational Drug Use Recreational Drug Use: No ED ROS GENERAL - Review of Systems Review Of Systems: Comprehensive ROS is negative, except as noted in HPI. ED EXAM, GENERAL - Physical Exam Exam: See Below Exam Limited By: No Limitations General Appearance: Alert, WD/WN, No Apparent Distress Respiratory/Chest: No Respiratory Distress, Lungs Clear, Normal Breath Sounds, No Accessory Muscle Use, Chest Non-Tender Cardiovascular: Normal Peripheral Pulses, Regular Rate, Rhythm, No Edema Peripheral Pulses: 2+: Radial (L), Radial (R) GI/Abdominal: Normal Bowel Sounds, Soft, Non-Tender, No Distention, No Mass Extremities: Normal Inspection, Normal Capillary Refill Neurological: Alert, Oriented, Normal Cognition, No Motor/Sensory Deficits Psychiatric: Normal Affect, Normal Mood Skin Exam: Warm, Dry, Intact, Normal Color, No Rash #1 Interpretation EKG Date: 12/03/20 Time: 12:01 Rhythm: NSR Rate (Beats/Min): 71 [place]: Normal P-Wave: Present QRS: Normal ST-T: Normal QT: Normal Comparison: NA - No Prior EKG EKG Interpretation Comments: No obvious ischemia or acute ST changes noted, reviewed by myself and Dr. Bonilla. Course - Vital Signs Last Recorded V/S: Last Vital Signs Temp 98 F 12/03/20 10:42 Pulse 84 12/03/20 13:00 Resp 20 12/03/20 13:00 BP 124/105 H 12/03/20 13:00 Pulse Ox 96 12/03/20 13:00 - Orders/Labs/Meds Orders: Active Orders 24 hr Category Date Time Status EKG Documentation Completion [RC] STAT Care 12/03/20 11:24 Ordered Famotidine [Pepcid] Med 12/03/20 11:15 Active 20 mg IVPUSH ONETIME PRN Sodium Chloride 0.9% [Normal Saline] 1,000 ml Med 12/03/20 11:24 Active IV ONETIME Sodium Chloride 0.9% [Saline Flush] Med 12/03/20 11:15 Active 30 ml FLUSH ASDIRECTED diphenhydrAMINE [Benadryl] Med 12/03/20 11:15 Active 50 mg IVPUSH ONETIME PRN methylPREDNISolone Sod Succ [Solu-MEDROL] Med 12/03/20 11:15 Active 125 mg IVPUSH ONETIME PRN Medication Orders Diphenhydramine HCl (Benadryl) 50 mg IVPUSH ONETIME PRN PRN Reason: hypersensitivity reaction Famotidine (Pepcid) 20 mg IVPUSH ONETIME PRN PRN Reason: hypersensitivity reaction Sodium Chloride (Normal Saline) 1,000 mls @ 500 mls/hr IV ONETIME ONE Stop: 12/03/20 13:23 Last Admin: 12/03/20 11:53 Dose: 500 mls/hr Documented by: EBERELI Methylprednisolone Sodium Succinate (Solu-Medrol) 125 mg IVPUSH ONETIME PRN PRN Reason: hypersensitivity reaction Sodium Chloride (Saline Flush) 30 ml FLUSH ASDIRECTED [facility] Labs: Laboratory Tests 12/03/20 12/03/20 12/03/20 Range/Units 10:55 10:55 10:55 WBC 4.51 (3.98-10.04) K/mm3 RBC 4.15 (3.98-5.22) M/mm3 Hgb 13.3 (11.2-15.7) gm/dl Hct 38.4 (34.1-44.9) % MCV 92.5 D (79.4-94.8) fl MCH 32.0 (25.6-32.2) pg MCHC 34.6 (32.2-35.5) g/dl RDW Std Deviation 46.0 (36.4-46.3) fL Plt Count 215 (182-369) K/mm3 MPV 9.2 L (9.4-12.3) fl Neutrophils % (Manual) 58 (40-60) % Band Neutrophils % 0 (0-10) % Lymphocytes % (Manual) 29 (20-40) % Atypical Lymphs % 0 % Monocytes % (Manual) 13 H (2-10) % Eosinophils % (Manual) 0 L (0.7-5.8) % Basophils % (Manual) 0 L (0.1-1.2) Platelet Estimate Adequate RBC Morph Comment Normal PT 10.5 (9.7-12.0) SECONDS INR 0.98 APTT 30.5 (21.7-31.4) SECONDS D-Dimer, Quantitative 0.39 (0.19-0.50) mg/L Sodium (136-145) mEq/L Potassium (3.5-5.1) mEq/L Chloride (98-107) mEq/L Carbon Dioxide (21-32) mEq/L Anion Gap (5-15) BUN (7-18) mg/dL Creatinine (0.55-1.02) mg/dL Est Cr Clr Drug Dosing mL/min Estimated GFR (MDRD) (>60) mL/min BUN/Creatinine Ratio (14-18) Glucose (80-115) mg/dL Lactic Acid (0.4-2.0) mmol/L Calcium (8.5-10.1) mg/dL Magnesium (1.8-2.4) mg/dl Ferritin (8-252) ng/ml Total Bilirubin (0.2-1.0) mg/dL AST (15-37) U/L ALT (14-59) U/L Alkaline Phosphatase (46-116) U/L Lactate Dehydrogenase (81-234) U/L Troponin I (0.00-0.056) ng/mL C-Reactive Protein 0.2 (<1.0) mg/dL NT-Pro-B Natriuret Pep (0-125) pg/mL Total Protein (6.4-8.2) g/dl Albumin (3.4-5.0) g/dl Globulin gm/dL Albumin/Globulin Ratio (1-2) 12/03/20 12/03/20 12/03/20 Range/Units 10:55 10:55 10:55 WBC (3.98-10.04) K/mm3 RBC (3.98-5.22) M/mm3 Hgb (11.2-15.7) gm/dl Hct (34.1-44.9) % MCV (79.4-94.8) fl MCH (25.6-32.2) pg MCHC (32.2-35.5) g/dl RDW Std Deviation (36.4-46.3) fL Plt Count (182-369) K/mm3 MPV (9.4-12.3) fl Neutrophils % (Manual) (40-60) % Band Neutrophils % (0-10) % Lymphocytes % (Manual) (20-40) % Atypical Lymphs % % Monocytes % (Manual) (2-10) % Eosinophils % (Manual) (0.7-5.8) % Basophils % (Manual) (0.1-1.2) Platelet Estimate RBC Morph Comment PT (9.7-12.0) SECONDS INR APTT (21.7-31.4) SECONDS D-Dimer, Quantitative (0.19-0.50) mg/L Sodium 126 L D (136-145) mEq/L Potassium 4.0 (3.5-5.1) mEq/L Chloride 92 L D (98-107) mEq/L Carbon Dioxide 21 (21-32) mEq/L Anion Gap 17.0 H (5-15) BUN 11 (7-18) mg/dL Creatinine 1.1 H (0.55-1.02) mg/dL Est Cr Clr Drug Dosing 36.94 mL/min Estimated GFR (MDRD) 49 (>60) mL/min BUN/Creatinine Ratio 10.0 L (14-18) Glucose 143 H (80-115) mg/dL Lactic Acid (0.4-2.0) mmol/L Calcium 8.4 L (8.5-10.1) mg/dL Magnesium 2.0 (1.8-2.4) mg/dl Ferritin 161 (8-252) ng/ml Total Bilirubin 0.2 (0.2-1.0) mg/dL AST 40 H (15-37) U/L ALT 51 (14-59) U/L Alkaline Phosphatase 80 (46-116) U/L Lactate Dehydrogenase 168 (81-234) U/L Troponin I < 0.017 (0.00-0.056) ng/mL C-Reactive Protein (<1.0) mg/dL NT-Pro-B Natriuret Pep 44 (0-125) pg/mL Total Protein 7.3 (6.4-8.2) g/dl Albumin 3.7 (3.4-5.0) g/dl Globulin 3.6 gm/dL Albumin/Globulin Ratio 1.0 (1-2) 12/03/20 Range/Units 11:54 WBC (3.98-10.04) K/mm3 RBC (3.98-5.22) M/mm3 Hgb (11.2-15.7) gm/dl Hct (34.1-44.9) % MCV (79.4-94.8) fl MCH (25.6-32.2) pg MCHC (32.2-35.5) g/dl RDW Std Deviation (36.4-46.3) fL Plt Count (182-369) K/mm3 MPV (9.4-12.3) fl Neutrophils % (Manual) (40-60) % Band Neutrophils % (0-10) % Lymphocytes % (Manual) (20-40) % Atypical Lymphs % % Monocytes % (Manual) (2-10) % Eosinophils % (Manual) (0.7-5.8) % Basophils % (Manual) (0.1-1.2) Platelet Estimate RBC Morph Comment PT (9.7-12.0) SECONDS INR APTT (21.7-31.4) SECONDS D-Dimer, Quantitative (0.19-0.50) mg/L Sodium (136-145) mEq/L Potassium (3.5-5.1) mEq/L Chloride (98-107) mEq/L Carbon Dioxide (21-32) mEq/L Anion Gap (5-15) BUN (7-18) mg/dL Creatinine (0.55-1.02) mg/dL Est Cr Clr Drug Dosing mL/min Estimated GFR (MDRD) (>60) mL/min BUN/Creatinine Ratio (14-18) Glucose (80-115) mg/dL Lactic Acid 2.0 (0.4-2.0) mmol/L Calcium (8.5-10.1) mg/dL Magnesium (1.8-2.4) mg/dl Ferritin (8-252) ng/ml Total Bilirubin (0.2-1.0) mg/dL AST (15-37) U/L ALT (14-59) U/L Alkaline Phosphatase (46-116) U/L Lactate Dehydrogenase (81-234) U/L Troponin I (0.00-0.056) ng/mL C-Reactive Protein (<1.0) mg/dL NT-Pro-B Natriuret Pep (0-125) pg/mL Total Protein (6.4-8.2) g/dl Albumin (3.4-5.0) g/dl Globulin gm/dL Albumin/Globulin Ratio (1-2) Meds: Medications Generic Name Dose Route Start Last Admin Trade Name Freq PRN Reason Stop Dose Admin Diphenhydramine HCl 50 mg 12/03/20 11:15 Benadryl IVPUSH ONETIME PRN hypersensitivity reaction Famotidine 20 mg 12/03/20 11:15 Pepcid IVPUSH ONETIME PRN hypersensitivity reaction Sodium Chloride 1,000 mls @ 500 mls/hr 12/03/20 11:24 12/03/20 11:53 Normal Saline IV 12/03/20 13:23 500 mls/hr ONETIME ONE Administration Methylprednisolone Sodium Succinate 125 mg 12/03/20 11:15 Solu-Medrol IVPUSH ONETIME PRN hypersensitivity reaction Sodium Chloride 30 ml 12/03/20 11:15 Saline Flush FLUSH ASDIRECTED IDANIA Discontinued Medications Generic Name Dose Route Start Last Admin Trade Name Freq PRN Reason Stop Dose Admin Dexamethasone 6 mg 12/03/20 11:28 12/03/20 11:53 Decadron IVPUSH 12/03/20 11:29 6 mg ONETIME ONE Administration Epinephrine HCl 0.3 mg 12/03/20 11:15 Adrenalin IM 12/03/20 11:16 ONETIME ONE Bamlanivimab 700 mg/ Sodium 270 mls @ 270 mls/hr 12/03/20 11:15 12/03/20 11:56 Chloride IV 12/03/20 11:16 270 mls/hr ONETIME ONE Administration Protocol Ondansetron HCl 4 mg 12/03/20 11:24 12/03/20 11:53 Zofran IVPUSH 12/03/20 11:25 4 mg ONETIME ONE Administration - Re-Assessments/Exams Free Text/Narrative Re-Assessment/Exam: 12/03/20 11:30 Patient presents to the ED for the evaluation of her ongoing COVID-19 illness. Patient does meet criterion for bamlanivimab treatment. We will get baseline labs to see how her disease process is going. I spoke with the patient to provide information about bamlanivimab treatment. I offered them the "Patient and caregiver POLLY bamlanivimab fact sheet" to read and review. I stated that the drug has been approved by an emergency use authorization (EUA) process and has not been fully FDA reviewed or approved. The patient meets the EUA requirements. I discussed there are other potential treatment options that are currently not FDA approved to treat COVID-19. I did offer an opportunity to ask questions and all questions were answered. Patient voiced understanding and agreed to proceed with the treatment. Patient will also get some IV fluids and some nausea medications as she states she has not been able to keep much down for home use. She does have Zofran at home but has not been able to use it. 12/03/20 12:19 Patient's laboratory evaluation has come back, CBC is essentially normal, D- dimer within normal limits, CRP within normal limits. Metabolic panel is impressive for an elevated anion gap at 17.0, and a low sodium at 126. Patient notes that she has been drinking more water lately, this is likely dilutional. The normal saline should help with this. KG was within normal limits at today's visit. 12/03/20 12:59 Patient's chest x-ray has been done, and is unremarkable. Patient is done with bamlanivimab treatment, we will discharge her around 2 PM, she needs to stay in this ER until 13:56. Patient is doing well in the room. Her fluids will be done shortly after that time as well, we will try to have her get some Gatorade and Powerade, so she is not drinking so much water at home if she is not feeling well. Departure - Departure Time of Disposition: 13:10 Disposition: Home, Self-Care 01 Condition: Good Clinical Impression: COVID-19 - Discharge Information *PRESCRIPTION DRUG MONITORING PROGRAM REVIEWED*: No *COPY OF PRESCRIPTION DRUG MONITORING REPORT IN PATIENT KATI: No Prescriptions: dexAMETHasone [Decadron] 6 mg PO DAILY 9 Days #9 tablet Instructions: COVID-19 Frequently Asked Questions Referrals: Alejandra Chi PA-C [Primary Care Provider] - Forms: ED Department Discharge Additional Instructions: You were seen in the ER today for ongoing and/or worsening respiratory symptoms. Your chest x-ray showed no signs of pneumonia at this time. Your oxygen levels were great at 98% on room air. You were diagnosed with COVID-19, per your report you were on about day 8, normally day 7-10 is when you she will be feeling the worse from COVID-19. You did receive some IV fluids, and IV antibody therapy to help lessen the disease course, and hopefully get you feeling better faster. You were given a prescription for dexamethasone you will need to take 1 tablet daily until gone. Your first dose was given in the ER. Please try to increase your oral fluid intake, and eat multiple small meals throughout the day, to keep yourself healthy. You need to keep yourself nourished in order to fight off this disease. You can try a liquid diet like gatorade/powerade along with protein shakes as well to get your electrolytes. Try to limit the amount of regular water you are drinking, as this can cause electrolyte issues with low sodium. The fluids like Gatorade/Powerade do have sodium, potassium, and other needed electrolytes. You may take 500 mg Tylenol every hours 6 hours for pain/fever relief. Do not exceed 4000 mg Tylenol in a 24-hour time span. However, running a fever is your body's natural response to illness, and it allows the body to develop antibodies to disease, we are recommending trying to limit the use of Tylenol as much as possible to allow your body's natural immune response. Recommend you obtain a pulse oximeter and monitor your oxygen levels at home, you should place the monitor on your finger, and sit in a calm, quiet position for a few minutes and then record the number that is on the screen. If this consistently below 90% on room air without movement, this would be cause for concern to come back to the hospital for further management of your COVID-19 disease. Sepsis Event Note (ED) - Evaluation Sepsis Screening Result: No Definite Risk - Focused Exam Vital Signs: Vital Signs Temp Pulse Resp BP Pulse Ox 12/03/20 13:00 84 20 124/105 H 96 12/03/20 12:45 82 18 125/60 96 12/03/20 12:30 81 20 123/63 97 12/03/20 12:15 84 20 134/73 95 12/03/20 12:00 76 21 H 124/61 95 12/03/20 10:42 98 F 88 20 151/70 H 98 - My Orders Last 24 Hours: My Active Orders 12/03/20 11:15 Famotidine [Pepcid] 20 mg IVPUSH ONETIME PRN Sodium Chloride 0.9% [Saline Flush] 30 ml FLUSH ASDIRECTED diphenhydrAMINE [Benadryl] 50 mg IVPUSH ONETIME PRN methylPREDNISolone Sod Succ [Solu-MEDROL] 125 mg IVPUSH ONETIME PRN 12/03/20 11:24 EKG Documentation Completion [RC] STAT Sodium Chloride 0.9% [Normal Saline] 1,000 ml IV ONETIME - Assessment/Plan Last 24 Hours: My Active Orders 12/03/20 11:15 Famotidine [Pepcid] 20 mg IVPUSH ONETIME PRN Sodium Chloride 0.9% [Saline Flush] 30 ml FLUSH ASDIRECTED diphenhydrAMINE [Benadryl] 50 mg IVPUSH ONETIME PRN methylPREDNISolone Sod Succ [Solu-MEDROL] 125 mg IVPUSH ONETIME PRN 12/03/20 11:24 EKG Documentation Completion [RC] STAT Sodium Chloride 0.9% [Normal Saline] 1,000 ml IV ONETIME
--- NOTE | 2020-12-03 12:25 | CR ---
Chest: Portable view of the chest was obtained. Comparison: Prior chest x-ray of 01/01/19. Heart size and mediastinum are normal. Lungs are clear with no acute parenchymal change. Previous right shoulder surgery is noted. Scoliosis and mild degenerative change is seen within the spine. Previous cholecystectomy is noted. Impression: 1. Nothing acute is appreciated on portable chest x-ray. Diagnostic code #2
[2020-12-03 13:02] VITALS: BP 124/105; PULSE 84
== END 2020-12-03 14:09 | disposition home or self-care (01) ==
LOC: JD.ED 10:22
DX: U07.1 COVID-19 (principal); I10 Essential (primary) hypertension; J45.909 Unspecified asthma, uncomplicated; K21.9 Gastro-esophageal reflux disease without esophagitis; Z88.5 Allergy status to narcotic agent; Z88.8 Allergy status to other drugs, medicaments and biological substances; Z88.1 Allergy status to other antibiotic agents; Z88.2 Allergy status to sulfonamides; Z79.899 Other long term (current) drug therapy
CPT/HCPCS: 36415; 71045; 80053; 82728; 83605; 83615; 83735; 83880; 84484; 85007; 85027; 85379; 85610; 85730; 86140; 93005; 96374; 96375; 99285; J1100; J2405; J7030; J7050; M0239; Q0239; 93010; 99284

== ENCOUNTER 2021-01-16 11:06 | Emergency (ER) | payer MEDICARE, BC ==
[2021-01-16 11:22] VITALS: BP 125/65; PULSE 114
[2021-01-16] MEDS ORDERED: Sodium Chloride 0.9% 10 ML Syringe FLUSH PRN (11:26)
--- NOTE | 2021-01-16 12:12 | CR ---
Chest: 2 views of the chest were obtained. Comparison: Prior chest x-ray of 12/03/20. Heart size and mediastinum are normal. Lungs are clear with no acute parenchymal change. Scoliosis and mild degenerative change are seen within the spine. Surgical clips are seen from prior cholecystectomy. Prior right shoulder surgery is noted. Impression: 1. Findings as noted above. 2. Nothing acute is appreciated on 2 view chest x-ray. Diagnostic code #2
--- NOTE | 2021-01-16 12:31 | EDM.PDOC ---
ED HPI GENERAL MEDICAL PROBLEM - General Chief Complaint: Cardiovascular Problem Stated Complaint: HIGH PULSE RATE Time Seen by Provider: 01/16/21 11:19 Source of Information: Reports: Patient, Provider, RN Notes Reviewed History Limitations: Reports: No Limitations - History of Present Illness INITIAL COMMENTS - FREE TEXT/NARRATIVE: Patient is a 70-year-old female presenting to the emergency department for evaluation with regards to chronically elevated heart rate since she had Covid at the end of November. Patient states that her heart rate has ranged from the upper 90s to 120s consistently over the last few weeks. She was seen in the clinic prior to coming to the ER and recommended come to the ER for evaluation. Her sustainment logistics analyst, Dr. Daniel, also recommended that she be placed on a 48-hour Holter monitor if everything checks out in the ER today. She denies any chest pain, chest pressure, shortness of breath, palpitations, or dizziness. She states that if she would not check her pulse, she would not be aware that her heart rate is high. A diagnosis of Covid on November 30, she received monoclonal antibodies and states that she tolerated the illness quite well. She only had a very mild cough. She did recently start on Vraylar for her bipolar disorder towards the end of October early November. She also admits that she has been under increased stress and anxiety for last few weeks while riding a children's story about childhood traumas and reliving her childhood traumas. She states that since she started the regular she has not "slept for crap". She is scheduled to see her psychiatrist next week and plans to talk about having this medication changed. - Related Data Allergies Allergy/AdvReac Type Severity Reaction Status Date / Time codeine Allergy Intermediate Rash Verified 01/16/21 11:17 guaifenesin [From Entex LA] Allergy Intermediate Rash Verified 01/16/21 11:17 phenylephrine HCl Allergy Intermediate Rash Verified 01/16/21 11:17 [From Entex LA] phenylpropanolamine HCl Allergy Intermediate Rash Verified 01/16/21 11:17 [From Entex LA] abiraterone [From Zytiga] Allergy Unknown Cannot Verified 01/16/21 11:17 Remember levofloxacin [From Levaquin] Allergy Unknown Cannot Verified 01/16/21 11:17 Remember lisinopril Allergy Unknown Cannot Verified 01/16/21 11:17 Remember losartan Allergy Unknown Cannot Verified 01/16/21 11:17 Remember potassium Allergy Unknown Cannot Verified 01/16/21 11:17 Remember Sulfa (Sulfonamide Allergy Unknown Cannot Verified 01/16/21 11:17 Antibiotics) Remember alendronate sodium AdvReac Mild Joint Pain Verified 01/16/21 11:17 [From Fosamax] montelukast sodium AdvReac Mild Drowsiness Verified 01/16/21 11:17 [From Singulair] tetracycline [Tetracycline] AdvReac Mild Nausea and Verified 01/16/21 11:17 Vomiting Home Meds: Home Meds estradioL [Estradiol] 0.5 mg PO DAILY 08/02/14 [History] Cetirizine [ZyrTEC] 10 mg PO BEDTIME 11/03/14 [History] Fluticasone Propionate [Flonase] 2 spray KENNEY BID 11/03/14 [History] guaiFENesin [Mucinex] 600 mg PO BID PRN 11/03/14 [History] Cholecalciferol (Vitamin D3) [Vitamin D3] 5,000 unit PO DAILY 05/16/18 [History] Olmesartan [Benicar] 0.5 mg PO DAILY 05/16/18 [History] Calcium Carbonate [Calcium] 500 mg PO BID 01/21/19 [History] Cyanocobalamin (Vitamin B-12) [Vitamin B-12] 1,000 mcg PO Q30D 01/21/19 [History] Famotidine [Pepcid] 20 mg PO DAILY 01/21/19 [History] Metoprolol Succinate [Toprol Xl] 10 mg PO DAILY 01/21/19 [History] Aspirin [Aspirin EC] 81 mg PO DAILY 12/03/20 [History] Cariprazine HCl [Vraylar] 1.5 mg PO DAILY 12/03/20 [History] dexAMETHasone [Decadron] 6 mg PO DAILY 9 Days #9 tablet 12/03/20 [Rx] Past Medical History HEENT History: Reports: Allergic Rhinitis, Impaired Vision, Sinusitis, Other (See Below) Other HEENT History: eustachian tybe dysfunction, bilateral serous otitis media, dental abcess Cardiovascular History: Reports: Heart Murmur, Hypertension, Other (See Below) Other Cardiovascular History: mitral valve prolapse, patent ductous arteriosis repair at 5 years old Respiratory History: Reports: Asthma, Bronchitis, Recurrent Gastrointestinal History: Reports: GERD PROPOSAL EDITOR History: Reports: Other (See Below) Other PROPOSAL EDITOR History: candidal vagintits, menopausal, breast microcalcifications, hot flashes, tubal Musculoskeletal History: Reports: Other (See Below) Other Musculoskeletal History: hammertoe, sicatica, left shoulder pain Neurological History: Reports: Migraines, Other (See Below) Other Neuro History: trigeminal neuralgia Psychiatric History: Reports: Bipolar Endocrine/Metabolic History: Reports: Other (See Below) Other Endocrine/Metabolic History: vitamin b12 deficiency Hematologic History: Reports: Anemia Oncologic (Cancer) History: Reports: Basal Cell Carcinoma Dermatologic History: Reports: Other (See Below) Other Dermatologic History: bCC - Infectious Disease History Infectious Disease History: Reports: Chicken Pox, Influenza, Measles, Mumps, Novel Coronavirus - Past Surgical History Head Surgeries/Procedures: Reports: None HEENT Surgical History: Reports: Myringotomy w Tube(s), Naso-Sinus Surgery, Tonsillectomy Female Surgical History: Reports: Hysterectomy, Oophorectomy, Tubal Ligation Endocrine Surgical History: Reports: None Neurological Surgical History: Reports: None Musculoskeletal Surgical History: Reports: Shoulder Surgery Oncologic Surgical History: Reports: None Dermatological Surgical History: Reports: None Social & Family History - Tobacco Use Tobacco Use Status *Q: Never Tobacco User Second Hand Smoke Exposure: No - Caffeine Use Caffeine Use: Reports: Tea - Recreational Drug Use Recreational Drug Use: No ED ROS GENERAL - Review of Systems Review Of Systems: See Below Constitutional: Reports: No Symptoms. Denies: Fever, Chills, Fatigue HEENT: Reports: No Symptoms Respiratory: Reports: No Symptoms. Denies: Shortness of Breath Cardiovascular: Reports: No Symptoms, Other (Tachycardia). Denies: Chest Pain, Blood Pressure Problem, Dyspnea on Exertion, Edema, Lightheadedness, Palpitations, Syncope Endocrine: Reports: No Symptoms GI/Abdominal: Reports: No Symptoms : Reports: No Symptoms Musculoskeletal: Reports: No Symptoms Skin: Reports: No Symptoms Neurological: Reports: No Symptoms Psychiatric: Reports: No Symptoms Hematologic/Lymphatic: Reports: No Symptoms Immunologic: Reports: No Symptoms ED EXAM, GENERAL - Physical Exam Exam: See Below General Appearance: Alert, WD/WN, No Apparent Distress Respiratory/Chest: No Respiratory Distress, Lungs Clear, Normal Breath Sounds, No Accessory Muscle Use, Chest Non-Tender Cardiovascular: Normal Peripheral Pulses, Regular Rate, Rhythm, No Edema, No Gallop, No JVD, No Murmur, No Rub, Tachycardia GI/Abdominal: Normal Bowel Sounds, Soft, Non-Tender, No Organomegaly, No Distention, No Abnormal Bruit, No Mass Neurological: Alert, Oriented, CN II-XII Intact, Normal Cognition, Normal Gait, Normal Reflexes, No Motor/Sensory Deficits Psychiatric: Normal Affect, Normal Mood Skin Exam: Warm, Dry, Intact, Normal Color, No Rash Course - Vital Signs Last Recorded V/S: Last Vital Signs Temp 96.8 F L 01/16/21 11:10 Pulse 114 H 01/16/21 11:10 Resp 20 01/16/21 11:10 BP 125/65 01/16/21 11:10 Pulse Ox 98 01/16/21 11:10 - Orders/Labs/Meds Orders: Active Orders 24 hr Category Date Time Status EKG Documentation Completion [RC] STAT Care 01/16/21 11:19 Active Holter Monitor 48 Hours [RC] .PRN Care 01/16/21 13:42 Active Peripheral IV Care [RC] . DIRECTED Care 01/16/21 11:26 Active Sodium Chloride 0.9% [Saline Flush] Med 01/16/21 11:26 Active 10 ml FLUSH ASDIRECTED PRN Peripheral IV Insertion Adult [OM.PC] Stat Oth 01/16/21 11:26 Ordered Medication Orders Sodium Chloride (Saline Flush) 10 ml FLUSH ASDIRECTED PRN PRN Reason: Keep Vein Open Last Admin: 01/16/21 11:36 Dose: 10 ml Documented by: VALENTE Labs: Laboratory Tests 01/16/21 01/16/21 01/16/21 Range/Units 11:35 11:35 11:35 WBC 8.35 (3.98-10.04) K/mm3 RBC 3.94 L (3.98-5.22) M/mm3 Hgb 12.5 (11.2-15.7) gm/dl Hct 37.7 (34.1-44.9) % MCV 95.7 H D (79.4-94.8) fl MCH 31.7 (25.6-32.2) pg MCHC 33.2 (32.2-35.5) g/dl RDW Std Deviation 47.5 H (36.4-46.3) fL Plt Count 279 (182-369) K/mm3 MPV 8.6 L (9.4-12.3) fl Neut % (Auto) 61.7 (34.0-71.1) % Lymph % (Auto) 30.1 (19.3-51.7) % [place] % (Auto) 6.7 (4.7-12.5) % Eos % (Auto) 0.6 L (0.7-5.8) Baso % (Auto) 0.8 (0.1-1.2) % Neut # (Auto) 5.15 (1.56-6.13) K/mm3 Lymph # (Auto) 2.51 (1.18-3.74) K/mm3 [place] # (Auto) 0.56 H (0.24-0.36) K/mm3 Eos # (Auto) 0.05 (0.04-0.36) K/mm3 Baso # (Auto) 0.07 (0.01-0.08) K/mm3 D-Dimer, Quantitative 0.53 H (0.19-0.50) mg/L Sodium 138 D (136-145) mEq/L Potassium 3.7 (3.5-5.1) mEq/L Chloride 100 (98-107) mEq/L Carbon Dioxide 24 (21-32) mEq/L Anion Gap 17.7 H (5-15) BUN 9 (7-18) mg/dL Creatinine 0.9 (0.55-1.02) mg/dL Est Cr Clr Drug Dosing 45.14 mL/min Estimated GFR (MDRD) > 60 (>60) mL/min BUN/Creatinine Ratio 10.0 L (14-18) Glucose 156 H (80-115) mg/dL Calcium 9.2 (8.5-10.1) mg/dL Magnesium (1.8-2.4) mg/dl Total Bilirubin 0.3 (0.2-1.0) mg/dL AST 24 (15-37) U/L ALT 38 (14-59) U/L Alkaline Phosphatase 91 (46-116) U/L Troponin I < 0.017 (0.00-0.056) ng/mL C-Reactive Protein 1.1 H* (<1.0) mg/dL Total Protein 7.5 (6.4-8.2) g/dl Albumin 3.8 (3.4-5.0) g/dl Globulin 3.7 gm/dL Albumin/Globulin Ratio 1.0 (1-2) 01/16/21 Range/Units 11:35 WBC (3.98-10.04) K/mm3 RBC (3.98-5.22) M/mm3 Hgb (11.2-15.7) gm/dl Hct (34.1-44.9) % MCV (79.4-94.8) fl MCH (25.6-32.2) pg MCHC (32.2-35.5) g/dl RDW Std Deviation (36.4-46.3) fL Plt Count (182-369) K/mm3 MPV (9.4-12.3) fl Neut % (Auto) (34.0-71.1) % Lymph % (Auto) (19.3-51.7) % [place] % (Auto) (4.7-12.5) % Eos % (Auto) (0.7-5.8) Baso % (Auto) (0.1-1.2) % Neut # (Auto) (1.56-6.13) K/mm3 Lymph # (Auto) (1.18-3.74) K/mm3 [place] # (Auto) (0.24-0.36) K/mm3 Eos # (Auto) (0.04-0.36) K/mm3 Baso # (Auto) (0.01-0.08) K/mm3 D-Dimer, Quantitative (0.19-0.50) mg/L Sodium (136-145) mEq/L Potassium (3.5-5.1) mEq/L Chloride (98-107) mEq/L Carbon Dioxide (21-32) mEq/L Anion Gap (5-15) BUN (7-18) mg/dL Creatinine (0.55-1.02) mg/dL Est Cr Clr Drug Dosing mL/min Estimated GFR (MDRD) (>60) mL/min BUN/Creatinine Ratio (14-18) Glucose (80-115) mg/dL Calcium (8.5-10.1) mg/dL Magnesium 2.1 (1.8-2.4) mg/dl Total Bilirubin (0.2-1.0) mg/dL AST (15-37) U/L ALT (14-59) U/L Alkaline Phosphatase (46-116) U/L Troponin I (0.00-0.056) ng/mL C-Reactive Protein (<1.0) mg/dL Total Protein (6.4-8.2) g/dl Albumin (3.4-5.0) g/dl Globulin gm/dL Albumin/Globulin Ratio (1-2) Meds: Medications Generic Name Dose Route Start Last Admin Trade Name Freq PRN Reason Stop Dose Admin Sodium Chloride 10 ml 01/16/21 11:26 01/16/21 11:36 Saline Flush FLUSH 10 ml ASDIRECTED PRN Administration Keep Vein Open - Re-Assessments/Exams Free Text/Narrative Re-Assessment/Exam: Patient is a 70-year-old female presenting to the emergency department for evaluation with regards to tachycardia at least for the last few weeks, but likely since her diagnosis of Covid in November. She denies any symptoms associated this. She is had no chest pain, chest pressure, shortness of breath, palpitations, or dizziness. She states that if she would not check her pulse, she would not be aware that her heart rate is elevated. He was recently started on Vraylar for her bipolar disorder. She also admits to being under increased stress lately. We will complete a cardiac work-up including CBC, CMP, CRP, magnesium, D-dimer, troponin, EKG, two-view chest x-ray. 01/16/21 13:45 Hematology was significant for D-dimer minimally elevated 0.53, however given her age of [age] years old this would be considered within the normal parameters. Gap 17.7, glucose 156, CRP 1.1. Troponin is undetectable. Electrolytes are normal. EKG shows sinus tachycardia at 102 with a nonspecific intraventricular conduction delay as well as a near left bundle branch pattern which is a slight change from her previous EKG done in November. I have sent these images over to the sustainment logistics analyst on-call at [facility], Dr. Parham, for evaluation. In the meantime, have ordered a 48-hour Holter monitor for the patient to be sent home with. 01/16/21 14:05 Dr. Parham reviewed today's EKG as well as her EKG from November and states that there is no concerning changes. He says that there is a conduction abnormality but no signs of acute ischemia. We will discharge her home on a 48-hour Holter monitor with instructions to follow-up with her primary care psychiatry, and sustainment logistics analyst. Discharge instructions as documented. Departure - Departure Time of Disposition: 14:03 Disposition: Home, Self-Care 01 Condition: Good Clinical Impression: Tachycardia Instructions: Sinus Tachycardia Referrals: Alejandra Chi PA-C [Primary Care Provider] - Forms: ED Department Discharge Additional Instructions: You were seen in the emergency department today for evaluation with regards to her high heart rate for the last few weeks, possibly since you had Covid. Work- up included blood work, EKG, and a chest x-ray. Results of your work-up were found to be overall normal. Your EKGs were forwarded on to cardiology at [facility] in [place] and they relayed that they look good. Your blood work was found to be normal. Your cardiac enzymes were not elevated indicating that your heart is not being strained. You have been sent home on a 48-hour Holter monitor. Follow the instructions as given to you with regards to using this and return it when ordered. Recommend follow-up with your primary care provider next week to review the results as well as with your sustainment logistics analyst as needed. If you should experience any concerning symptoms, please not hesitate to return to the emergency department for reevaluation. Sepsis Event Note (ED) - Evaluation Sepsis Screening Result: No Definite Risk - Focused Exam Vital Signs: Vital Signs Temp Pulse Resp BP Pulse Ox 01/16/21 11:10 96.8 F L 114 H 20 125/65 98 - My Orders Last 24 Hours: My Active Orders 01/16/21 11:19 EKG Documentation Completion [RC] STAT 01/16/21 11:26 Peripheral IV Care [RC] . DIRECTED Sodium Chloride 0.9% [Saline Flush] 10 ml FLUSH ASDIRECTED PRN Peripheral IV Insertion Adult [OM.PC] Stat 01/16/21 13:42 Holter Monitor 48 Hours [RC] .PRN - Assessment/Plan Last 24 Hours: My Active Orders 01/16/21 11:19 EKG Documentation Completion [RC] STAT 01/16/21 11:26 Peripheral IV Care [RC] . DIRECTED Sodium Chloride 0.9% [Saline Flush] 10 ml FLUSH ASDIRECTED PRN Peripheral IV Insertion Adult [OM.PC] Stat 01/16/21 13:42 Holter Monitor 48 Hours [RC] .PRN
== END 2021-01-16 14:19 | disposition home or self-care (01) ==
LOC: JD.ED 11:06
DX: R00.0 Tachycardia, unspecified (principal); I10 Essential (primary) hypertension; J45.909 Unspecified asthma, uncomplicated; K21.9 Gastro-esophageal reflux disease without esophagitis; R79.1 Abnormal coagulation profile; Z86.16 Personal history of COVID-19; Z88.5 Allergy status to narcotic agent; Z88.8 Allergy status to other drugs, medicaments and biological substances; Z88.2 Allergy status to sulfonamides; Z88.1 Allergy status to other antibiotic agents; Z79.899 Other long term (current) drug therapy; Z79.82 Long term (current) use of aspirin
CPT/HCPCS: 36415; 71046; 71046-26; 80053; 83735; 84484; 85025; 85379; 86140; 93005; 93225; 93226; 99284; 99285-25

== ENCOUNTER 2021-12-28 16:14 | Emergency (ER) | payer MEDICARE, BC ==
[2021-12-28 16:22] VITALS: BP 119/59; PULSE 75
[2021-12-28] MEDS ORDERED: Sodium Chloride 0.9% 10 ML Syringe FLUSH PRN (16:41)
[2021-12-28] MEDS ORDERED: Sodium Chloride 0.9% 1,000 ML IV SCH (16:45)
== END 2021-12-28 21:59 | disposition other institution (70) ==
LOC: SUPCPDRO 16:14 → JD.ED 16:14
DX: R40.0 Somnolence (principal); K21.9 Gastro-esophageal reflux disease without esophagitis; I10 Essential (primary) hypertension; Z88.5 Allergy status to narcotic agent; Z88.1 Allergy status to other antibiotic agents; Z88.2 Allergy status to sulfonamides; Z88.8 Allergy status to other drugs, medicaments and biological substances; Z79.82 Long term (current) use of aspirin; Z79.899 Other long term (current) drug therapy
CPT/HCPCS: 36415; 80053; 85025; 99285; J7030; 99284

== ENCOUNTER 2022-05-24 05:45 | Day surgery (SDC) | payer MEDICARE, BC ==
[~2022-05-24 05:45] MED LIST changes: -Bupivacaine 0.75% 30 ML SDV ONE; -EPINEPHrine 1 MG/ML SDV ONE; -Ketorolac 30 MG/ML SDV ONE; -Lactated Ringers 1,000 ML IV SCH; -Lactated Ringers 1,000 ML ONE; -Lidocaine 1% PF 2 ML SDV ONE; -Ondansetron 4 MG/2 ML SDV ONE; -Propofol 200 MG/20 ML SDV ONE; -Ropivacaine 0.5% 5 MG/ML 30 ML SDV ONE; -Scopolamine 1.5 MG Transdermal Patch TRDERM SCH; +Sodium Chloride 0.9% 10 ML Syringe FLUSH SCH; -ePHEDrine/Normal Saline 25 MG/5 ML Syringe ONE; -fentaNYL 100 MCG/2 ML SDV ONE
[2022-05-24] MEDS: Lactated Ringers 1,000 ML IV SCH ×2 (05:55→09:16)
[2022-05-24] MEDS ORDERED: Dexmedetomidine 200 MCG/2 ML SDV ONE (06:02)
[2022-05-24] MEDS ORDERED: Ropivacaine 0.5% 5 MG/ML 30 ML SDV ONE (06:03)
[2022-05-24] MEDS ORDERED: fentaNYL 100 MCG/2 ML SDV ONE (06:04)
[2022-05-24] MEDS ORDERED: Lidocaine 1% 4 ML ONE ×2 (06:04→07:07)
[2022-05-24] MEDS ORDERED: Midazolam 1 MG/ML 2 ML SDV ONE (06:04)
[2022-05-24] MEDS ORDERED: ceFAZolin 2 GM Vial ONE (06:05)
[2022-05-24] MEDS ORDERED: EPINEPHrine 1 MG/ML SDV ONE (06:08)
[2022-05-24] MEDS ORDERED: Dexamethasone 4 MG/ML 5 ML MDV ONE (06:08)
[2022-05-24] MEDS ORDERED: Propofol 200 MG/20 ML SDV ONE (06:52)
[2022-05-24] MEDS ORDERED: Phenylephrine 1% 10 MG/ML SDV ONE (07:31)
[2022-05-24] MEDS: Vancomycin 1 GM SDV ONE ×2 (07:48→08:10)
[2022-05-24] MEDS ORDERED: HYDROmorphone 0.5 MG/0.5 ML Syringe IVPUSH PRN (08:46)
[2022-05-24] MEDS ORDERED: fentaNYL 100 MCG/2 ML SDV IVPUSH PRN (08:46)
[2022-05-24 17:13] VITALS: BP 110/64; PULSE 78
== END 2022-05-24 12:30 | disposition home or self-care (01) ==
LOC: JD.SDS 05:45
PROVIDERS: ATTEND Orthopaedic Surgery
DX: M19.011 Primary osteoarthritis, right shoulder (principal); J45.909 Unspecified asthma, uncomplicated; I10 Essential (primary) hypertension; M85.80 Other specified disorders of bone density and structure, unspecified site; E53.8 Deficiency of other specified B group vitamins; K21.9 Gastro-esophageal reflux disease without esophagitis; R00.0 Tachycardia, unspecified; Q23.1 Congenital insufficiency of aortic valve; Z91.040 Latex allergy status; Z88.8 Allergy status to other drugs, medicaments and biological substances; Z88.5 Allergy status to narcotic agent; Z79.82 Long term (current) use of aspirin; Z79.899 Other long term (current) drug therapy; Z98.890 Other specified postprocedural states
CPT/HCPCS: 01638; 64415; 73020-26-RT; 73020-RT; 76000; 76000-26; 76942; 97110-GP; 97161-GP; 99100; C1713; C1769; C1776; J0171; J0690; J1100; J2250; J2370; J2704; J2795; J3010; J3370; J7120

== ENCOUNTER 2022-11-29 08:19 | Day surgery (SDC) | payer MEDICARE, BC ==
[~2022-11-29 08:19] MED LIST changes: +Lactated Ringers 1,000 ML IV SCH
[2022-11-29] MEDS ORDERED: Propofol 200 MG/20 ML SDV ONE (09:40)
[2022-11-29] MEDS ORDERED: Ondansetron 4 MG/2 ML SDV ONE (10:21)
[2022-11-29 11:16] VITALS: BP 115/51; PULSE 62
== END 2022-11-29 11:18 | disposition home or self-care (01) ==
LOC: JD.SDS 08:19
PROVIDERS: ATTEND Surgery
DX: Z12.11 Encounter for screening for malignant neoplasm of colon (principal); D12.0 Benign neoplasm of cecum; K57.30 Diverticulosis of large intestine without perforation or abscess without bleeding; F31.9 Bipolar disorder, unspecified; I10 Essential (primary) hypertension; H69.80 Other specified disorders of Eustachian tube, unspecified ear; R73.01 Impaired fasting glucose; M85.80 Other specified disorders of bone density and structure, unspecified site; E53.8 Deficiency of other specified B group vitamins; J45.909 Unspecified asthma, uncomplicated; Z79.899 Other long term (current) drug therapy; Z88.2 Allergy status to sulfonamides; Z91.040 Latex allergy status; Z88.8 Allergy status to other drugs, medicaments and biological substances; Z88.1 Allergy status to other antibiotic agents; Z88.5 Allergy status to narcotic agent; Z79.82 Long term (current) use of aspirin; Z98.890 Other specified postprocedural states; Z90.710 Acquired absence of both cervix and uterus; Z90.49 Acquired absence of other specified parts of digestive tract; Z86.16 Personal history of COVID-19; Z96.653 Presence of artificial knee joint, bilateral
CPT/HCPCS: 45385; J2405; J2704; J7120

== ENCOUNTER 2023-06-14 09:51 | Emergency (ER) | payer MEDICARE, BC ==
[2023-06-14 11:26] LABS: INFLUENZA A NAA NEGATIVE (NEGATIVE); RESPIRATORY SYNCYTIAL VIR NAA NEGATIVE (NEGATIVE)
[2023-06-14 11:29] LABS: CORONAVIRUS COVID-19 NAA POSITIVE (NEGATIVE)
[2023-06-14 13:19] VITALS: BP 134/75; PULSE 72
== END 2023-06-14 12:43 | disposition home or self-care (01) ==
LOC: JD.ED 09:51
DX: U07.1 COVID-19 (principal); I10 Essential (primary) hypertension; J45.909 Unspecified asthma, uncomplicated; K21.9 Gastro-esophageal reflux disease without esophagitis; E11.9 Type 2 diabetes mellitus without complications; Z86.16 Personal history of COVID-19; Z88.5 Allergy status to narcotic agent; Z88.8 Allergy status to other drugs, medicaments and biological substances; Z88.1 Allergy status to other antibiotic agents; Z88.2 Allergy status to sulfonamides; Z91.040 Latex allergy status
CPT/HCPCS: 0241U; 99283

== ENCOUNTER 2024-01-30 08:11 | Day surgery (SDC) | payer MEDICARE, BC ==
[~2024-01-30 08:11] MED LIST changes: -Lactated Ringers 1,000 ML IV SCH; -Lidocaine 1%/Sod Bicarbonate in NS 8.4% 1 ML Syringe IDERM PRN; -Sodium Chloride 0.9% 10 ML Syringe FLUSH SCH
[2024-01-30] MEDS: Lactated Ringers 1,000 ML IV SCH (08:30)
[2024-01-30] MEDS ORDERED: Sodium Chloride 0.9% 10 ML Syringe FLUSH SCH (09:00)
[2024-01-30] MEDS ORDERED: Propofol 200 MG/20 ML SDV ONE ×2 (09:58→10:29)
[2024-01-30 11:41] VITALS: BP 116/72; PULSE 80
== END 2024-01-30 11:50 | disposition home or self-care (01) ==
LOC: JD.SDS 08:11
PROVIDERS: ATTEND Student in an Organized Health Care Education/Training Program
DX: Z12.11 Encounter for screening for malignant neoplasm of colon (principal); K63.5 Polyp of colon; F31.9 Bipolar disorder, unspecified; J45.909 Unspecified asthma, uncomplicated; M19.90 Unspecified osteoarthritis, unspecified site; J01.90 Acute sinusitis, unspecified; H26.9 Unspecified cataract; E78.00 Pure hypercholesterolemia, unspecified; E11.9 Type 2 diabetes mellitus without complications; I10 Essential (primary) hypertension; J02.9 Acute pharyngitis, unspecified; Z88.8 Allergy status to other drugs, medicaments and biological substances; Z88.5 Allergy status to narcotic agent; Z88.2 Allergy status to sulfonamides; Z88.1 Allergy status to other antibiotic agents; Z79.899 Other long term (current) drug therapy; Z86.010 Personal history of colon polyps
CPT/HCPCS: 00812; 99100; J2704; J7120